=== PATIENT | female | born 1935 | race African-American/Black ===

== ENCOUNTER 2018-04-23 10:37 | Inpatient (IN) | payer MEDICARE, MEDICAID ==
--- NOTE | 2018-04-23 11:11 | ED Physician Chart ---
ED Chief Complaint/HPI - Patient Information Date Seen:: 04/23/18 Time Seen:: 11:00 Chief Complaint:: INSOMNIA DEPRESSION History of Present Illness:: 82 YR OLD FEMALE WITH HX OF PARANOID SCHIZOPHRENIA WITH TROUBLE SLEEPING GIVEN BY PSCHIATRIST TRAZADONE YEST FOR SLEEP TOOK ONE YEST PT DENIES SUICIDAL IDEATION NO HALLUCINATIONS PT SPEAKING TO DAUGHTER WHO LIVES WITH HER IN [place] Allergies:: Allergies Allergy/AdvReac Type Severity Reaction Status Date / Time No Known Allergies Allergy Verified 04/23/18 10:50 Vitals:: Vital Signs - 8 hr 04/23/18 10:50 Temp 98.0 F HR 61 RR 21 BP 136/37 O2 Sat % 97 ED Review of Systems - Review of Systems General/Constitutional: No fever Head: No headache, No light-headedness Eyes: No loss of vision, No pain, No diplopia ENT: No earache, No nasal drainage, No sore throat, No tinnitus Neck: No neck pain, No swelling, No thyromegaly, No stiffness, No mass noted Cardio Vascular: No chest pain, No palpitations, No PND, No orthopnea, No edema Pulmonary: No SOB, No cough, No sputum, No wheezing GI: No nausea, No vomiting, No diarrhea, No pain, No melena, No hematochezia, No constipation, No hematemesis G/U: No dysuria, No frequency, No hematuria Musculoskeletal: No bone or joint pain, No back pain, No muscle pain Endocrine: No polyuria, No polydipsia Psychiatric: Prior psych history, Depression, Anxiety, No suicidal ideation Hematopoietic: No bruising, No lymphadenopathy Allergic/Immuno: No urticaria, No angioedema Neurological: No syncope ED Past Medical History - Past Medical History Past Medical History: HTN, DM ED Physical Exam - Physical Examination General/Constitutional: Well-developed, well-nourished Head: Atraumatic Eyes: Lids, conjuctiva normal Skin: Nl inspection ENMT: External ears, nose nl Neck: Nontender Respiratory: Nl effort/Exclusion Cardio Vascular: RRR, No murmur, gallop, rubs GI: No tenderness/rebounding/guarding : No CVA tenderness, NL external genitalia Extremities: No tenderness or effusion Neuro/Psych: Alert/oriented Misc: Normal back ED Assessment - Assessment General Assessment: ANXDEPRESSION INSOMNIA PARANOID SCHIZOPHRENIA ED Septic Shock - . Is Septic Shock (SBP<90, OR Lactate>4 mmol\L) present?: No - <6hrs of presentation: Vital Signs: Vital Signs - 8 hr 04/23/18 10:50 Temp 98.0 F HR 61 RR 21 BP 136/37 O2 Sat % 97 ED Reassessment (Disposition) - Reassessment Reassessment Condition:: Improved - Patient Disposition Discharge/Transfer:: Acute Care w/in this hosp
[2018-04-23 11:21] LABS: % BASOPHILS 0.9 % (0.0-2.0); % EOSINOPHILS 2.4 % (0.0-5.0); % LYMPHOCYTES 28.8 % (20.0-50.0); % MONOCYTES 6.8 % (2.0-10.0); % NEUTROPHILS 61.1 % (40.0-80.0); EOSINOPHILE ABSOLUTE 0.1 Th/cmm (0.1-0.4); HEMATOCRIT 38.1 % (41.0-60); HEMOGLOBIN 12.8 gm/dL (12-16); LYMPHOCYTE ABSOLUTE 1.4 Th/cmm (1.5-3.0); MEAN CORPUSCULAR HEMOGLOBIN 30.6 pg (27.0-31.0); MEAN CORPUSCULAR HGB CONC 33.6 pg (28.0-36.0); MEAN PLATELET VOLUME 8.1 fl; MONOCYTE ABSOLUTE 0.3 Th/cmm (0.3-1.0); NEUTROPHILE ABSOLUTE 2.9 Th/cmm (1.8-8.0); PLATELET COUNT 211 Th/cmm (150-400); RED BLOOD COUNT 4.19 Mil/cmm (3.80-5.20); RED CELL DISTRIBUTION WIDTH 12.2 % (11.5-20.0); WHITE BLOOD COUNT 4.7 Th/cmm (4.8-10.8)
[2018-04-23 11:43] LABS: ACETAMINOPHEN < 10.0 ug/mL (10.0-30.0); ALB/GLOB RATIO 1.8 (1.0-1.8); ALBUMIN 4.1 gm/dL (3.7-5.3); ALKALINE PHOSPHATASE 56 U/L (34-104); ANION GAP 8.4 (7.0-16.0); BILIRUBIN,TOTAL 0.7 mg/dL (0.3-1.0); BUN - UREA NITROGEN 17 mg/dL (7-25); CALCIUM SERUM 9.7 mg/dL (8.6-10.3); CARBON DIOXIDE 26.5 mEq/L (21.0-31.0); CHLORIDE 107 mEq/L (98-107); CREATININE - SERUM 0.9 mg/dL (0.6-1.2); GLUCOSE 100 mg/dL (70-105); POTASSIUM SERUM 3.9 mEq/L (3.5-5.1); SGOT 20 U/L (13-39); SGPT/ALT 11 U/L (7-52); SODIUM SERUM 138 mEq/L (136-145); TOTAL PROTEIN,SERUM 6.4 gm/dL (6.0-8.3)
[2018-04-23 11:48] LABS: SALICYLATES (ASPIRIN) < 25.0 mg/L (30.0-100.0)
[2018-04-23 13:35] LABS: URINE MICROSCOPIC INDICATED? YES; URINE SOURCE CLEAN C
[2018-04-23 13:44] LABS: URINE BILIRUBIN NEGATIVE (NEGATIVE); URINE BLOOD NEGATIVE (NEGATIVE); URINE GLUCOSE (UA) NEGATIVE (NEGATIVE); URINE KETONE NEGATIVE (NEGATIVE); URINE LEUKOCYTE ESTERASE MODERATE (NEGATIVE); URINE NITRATE NEGATIVE (NEGATIVE); URINE PH 5.5 (4.6 - 8.0); URINE PROTEIN NEGATIVE (NEGATIVE); URINE UROBILINOGEN 0.2 E.U./dL (0.2 - 1.0)
[2018-04-23 13:46] LABS: URINE CLARITY TURBID (CLEAR); URINE COLOR YELLOW
[2018-04-23 13:49] LABS: URINE BACTERIA MODERATE /hpf (NONE SEEN); URINE EPITHELIAL CELLS MODERATE /lpf (FEW); URINE RBC 0-2 /hpf (0-5)
[2018-04-23 13:51] LABS: AMPHETAMINE URINE NEGATIVE (NEGATIVE); BARBITURATES URINE NEGATIVE (NEGATIVE); BENZODIAZEPINES QUAL URINE NEGATIVE (NEGATIVE); CANNABINOID THC NEGATIVE (NEGATIVE); COCAINE METABOLITE QUAL URINE NEGATIVE (NEGATIVE); METHADONE URINE NEGATIVE (NEGATIVE); METHAMPHETAMINES QUAL URINE NEGATIVE (NEGATIVE); OPIATES (MORPHINE) QUAL. URINE NEGATIVE (NEGATIVE); PHENCYCLIDINE (PCP) URINE NEGATIVE (NEGATIVE); TRICYCLICS (TCA) QUAL. URINE NEGATIVE (NEGATIVE)
[2018-04-23 22:40] VITALS: BP 155/83
[2018-04-23] MEDS ORDERED: Maalox 30 mL Cup PO PRN (22:43)
[2018-04-23] MEDS ORDERED: Magnesium Hydroxide (MOM) 30 mL UDC PO PRN (22:43)
--- NOTE | 2018-04-24 08:51 | Diagnostic Imaging Report ---
CT scan of the brain without intravenous contrast HISTORY: Psychosis, mental status change, stroke/CVA Total DLP equals 610 CTDI equals 37.1 Axial sections were obtained from the base of the skull to the vertex. There is prominence/enlargement of the ventricular system size. Associated enlargement of cerebral sulci and subarachnoid cisterns. Findings are consistent with changes of generalized cerebral atrophy. No acute parenchymal abnormalities. No acute cerebral hemorrhage. Hypodensity is seen within the supratentorial white matter regions without mass effect. The findings may be associated with chronic small vessel ischemic disease. No extra-axial masses or abnormal fluid collections. IMPRESSION: 1. No acute abnormalities 2. Cerebral atrophy 3. Supratentorial white matter changes that may reflect chronic small vessel ischemic disease
[2018-04-24] MEDS: Multivitamin Tab PO SCH (09:12)
--- NOTE | 2018-04-25 02:12 | Consultation ---
DATE OF CONSULTATION: 04/24/2018 Dr. Gibson covering for Dr. Castellanos. CHIEF COMPLAINT: Depression, ____, schizophrenia, not sleeping. HISTORY OF PRESENT ILLNESS: She is an 82-year-old female with a history of schizophrenia who is having trouble sleeping, given by psychiatrist marko, medically cleared and transferred to [facility] for continuation of severe insomnia. Today, on jwry-sv-savm evaluation, the patient reports severe insomnia, very distraught with insomnia, overwhelmed. Denies any auditory or visual hallucinations. No manic or hypomanic symptoms. ALLERGIES TO MEDICATIONS: NKDA CURRENT MEDICAL PROBLEMS: Include hypertension and diabetes. MEDICAL HISTORY: None. FAMILY PSYCHIATRIC HISTORY: None. PSYCHOSOCIAL MENTAL HISTORY: The patient reports that she lives with a caregiver. CURRENT MEDICATIONS: She is on multivitamins, Ambien as needed, magnesium oxide, and acetaminophen. MENTAL STATUS EXAMINATION: She is in room, calm, engaging, at times sad, tearful, awake and alert x 3. Denies any auditory or visual hallucinations or homicidal. No delusions. PHYSICAL PAIN: 0/10. PHYSICAL IMPAIRMENT: None. ACUTE FUNCTIONAL IMPAIRMENT: Severe. STRENGTH: Good ability for insight in the near future. WEAKNESSES: Poor coping skills. PRIMARY DIAGNOSIS: Unspecified mood disorder. SECONDARY DIAGNOSIS: Schizophrenia by history. MEDICAL DIAGNOSIS: As noted above. ASSESSMENT AND PLAN: The patient is an 82-year-old female who was admitted here for severe insomnia. Distraught by the insomnia. We will start the patient on Remeron 7.5 mg at nighttime, to continue adjusting. Will be obtaining more collateral baseline information. Discontinue the Ambien to reduce the risk of any ____ adverse effects. Estimated stay between 5-10. Discharge criteria demonstrate euthymic mood. No suicidal or homicidal ideation. Good psychiatric followup. Good svhr-zy-mbtu interaction. JOB# [id number]
--- NOTE | 2018-04-25 08:13 | History & Physical ---
ADMIT DATE: 04/23/2018 CHIEF COMPLAINT: Mental health disorder. HISTORY OF PRESENT ILLNESS: This is an 82-year-old female brought to Emergency Room by daughter for evaluation of mental health illnesses. The patient, as already mentioned, was medically cleared and was admitted to Geropsych unit for underlying mental health evaluations. PAST MEDICAL HISTORY: Hypertension, diabetes, hyperlipidemia, mental disorder. PAST SURGICAL HISTORY: No significant past surgical history. SOCIAL HISTORY: Lives in ____. MEDICATIONS: Tylenol, lisinopril, lorazepam, milk of mag, Remeron, multivitamins, and Ambien. REVIEW OF SYSTEMS: The patient denies any fever, no chills, no nausea, no abdominal pain, no headache, no chest pain, no dizziness, palpitations, dysuria, or hematuria. PHYSICAL EXAMINATION: VITAL SIGNS: Temperature 99.0, pulse 70, respirations 20, blood pressure 189/77, and 96% on room air. GENERAL APPEARANCE: This patient does not seem in acute distress. HEART: Normal. LUNGS: Clear to auscultation. ABDOMEN: Soft. NEUROLOGIC: The patient is awake, alert. Moves all extremities. No focal deficits. EXTREMITIES: No edema. AVAILABLE LABORATORY DATA: ____. ASSESSMENT: 1. Hypertension. 2. Hyperlipidemia. 3. Iron deficiency. 4. Diabetes. 5. Mental disorder. PLAN: The patient is admitted to [facility] unit ____ psychiatrist. Lisinopril started. Monitor vital signs closely. The patient's diabetes is diet controlled. The patient's home medication reconciled. Discussed with her regarding condition and plan of care with nursing staff. JOB# [id number]
[2018-04-25] MEDS: Multivitamin Tab PO SCH (09:04)
--- NOTE | 2018-04-25 22:10 | Progress Notes ---
DATE: 04/25/2018 SUBJECTIVE: The patient was seen and evaluated. The patient's chart was reviewed. Dr. Gibson covering for Dr. Castellanos. Recent MRI was performed, impression; no acute abnormalities with cerebral atrophy and supratentorial white matter changes, however, chronic small vessel ischemic changes. Nursing staff reported the patient presents a little more irritable, paranoid, believing there was a code blue, that her daughter was engaged in it. Today on odat-aj-clom evaluation, the patient presents very irritable. She reports that she wants a bee raiser present, people are trying to kill her, that she wants her daughter present in order to communicate and requesting only Dr. Castellanos to see her because she is very afraid something is going to happen to her. MENTAL STATUS EXAMINATION: Easily paranoid, suspicious. ASSESSMENT AND PLAN: The patient is an 82-year-old female with symptoms observed to be more consistent with paranoia. We will continue monitoring and evaluating and augment with Seroquel to target the patient's paranoia while we continue exploring any other medical avenues of her recent altered mental status. JOB# [id number]
[2018-04-26] MEDS: Multivitamin Tab PO SCH (08:37)
--- NOTE | 2018-04-26 21:04 | General Progress Note ---
Subjective - Review of Systems Service Date: 04/26/18 Subjective: Patient doing fine denied any complaints Objective - Results Result Diagrams: 04/23/18 11:10 04/23/18 11:10 Recent Labs: Laboratory Last Values WBC 4.7 Th/cmm (4.8-10.8) L 04/23/18 11:10 RBC 4.19 Mil/cmm (3.80-5.20) 04/23/18 11:10 Hgb 12.8 gm/dL (12-16) 04/23/18 11:10 Hct 38.1 % (41.0-60) L 04/23/18 11:10 MCV 91.0 fl (81-100) 04/23/18 11:10 MCH 30.6 pg (27.0-31.0) 04/23/18 11:10 MCHC Differential 33.6 pg (28.0-36.0) 04/23/18 11:10 RDW 12.2 % (11.5-20.0) 04/23/18 11:10 Plt Count 211 Th/cmm (150-400) 04/23/18 11:10 MPV 8.1 fl 04/23/18 11:10 Neutrophils % 61.1 % (40.0-80.0) 04/23/18 11:10 Lymphocytes % 28.8 % (20.0-50.0) 04/23/18 11:10 Monocytes % 6.8 % (2.0-10.0) 04/23/18 11:10 Eosinophils % 2.4 % (0.0-5.0) 04/23/18 11:10 Basophils % 0.9 % (0.0-2.0) 04/23/18 11:10 Sodium 138 mEq/L (136-145) 04/23/18 11:10 Potassium 3.9 mEq/L (3.5-5.1) 04/23/18 11:10 Chloride 107 mEq/L (98-107) 04/23/18 11:10 Carbon Dioxide 26.5 mEq/L (21.0-31.0) 04/23/18 11:10 Anion Gap 8.4 (7.0-16.0) 04/23/18 11:10 BUN 17 mg/dL (7-25) 04/23/18 11:10 Creatinine 0.9 mg/dL (0.6-1.2) 04/23/18 11:10 Est GFR ( Amer) TNP 04/23/18 11:10 Est GFR (Non-Af Amer) TNP 04/23/18 11:10 BUN/Creatinine Ratio 18.9 04/23/18 11:10 Glucose 100 mg/dL (70-105) 04/23/18 11:10 Calcium 9.7 mg/dL (8.6-10.3) 04/23/18 11:10 Total Bilirubin 0.7 mg/dL (0.3-1.0) 04/23/18 11:10 AST 20 U/L (13-39) 04/23/18 11:10 ALT 11 U/L (7-52) 04/23/18 11:10 Alkaline Phosphatase 56 U/L (34-104) 04/23/18 11:10 Total Protein 6.4 gm/dL (6.0-8.3) 04/23/18 11:10 Albumin 4.1 gm/dL (3.7-5.3) 04/23/18 11:10 Globulin 2.3 gm/dL 04/23/18 11:10 Albumin/Globulin Ratio 1.8 (1.0-1.8) 04/23/18 11:10 Urine Source CLEAN C 04/23/18 13:29 Urine Color YELLOW 04/23/18 13:29 Urine Clarity TURBID (CLEAR) H 04/23/18 13:29 Urine pH 5.5 (4.6 - 8.0) 04/23/18 13:29 Ur Specific [place] 1.025 (1.005-1.030) 04/23/18 13:29 Urine Protein NEGATIVE mg/dL (NEGATIVE) 04/23/18 13:29 Urine Glucose (UA) NEGATIVE mg/dL (NEGATIVE) 04/23/18 13:29 Urine Ketones NEGATIVE mg/dL (NEGATIVE) 04/23/18 13:29 Urine Blood NEGATIVE (NEGATIVE) 04/23/18 13:29 Urine Nitrate NEGATIVE (NEGATIVE) 04/23/18 13:29 Urine Bilirubin NEGATIVE (NEGATIVE) 04/23/18 13:29 Urine Urobilinogen 0.2 E.U./dL (0.2 - 1.0) 04/23/18 13:29 Ur Leukocyte Esterase MODERATE (NEGATIVE) H 04/23/18 13:29 Urine RBC 0-2 /hpf (0-5) 04/23/18 13:29 Urine WBC 6-10 /hpf (0-5) H 04/23/18 13:29 Ur Epithelial Cells MODERATE /lpf (FEW) 04/23/18 13:29 Urine Bacteria MODERATE /hpf (NONE SEEN) H 04/23/18 13:29 Salicylates < 25.0 mg/L (30.0-100.0) L 04/23/18 11:10 Urine Opiates Screen NEGATIVE (NEGATIVE) 04/23/18 13:29 Urine Methadone Screen NEGATIVE (NEGATIVE) 04/23/18 13:29 Acetaminophen < 10.0 ug/mL (10.0-30.0) L 04/23/18 11:10 Ur Barbiturates Screen NEGATIVE (NEGATIVE) 04/23/18 13:29 Ur Tricyclics Screen NEGATIVE (NEGATIVE) 04/23/18 13:29 Ur Phencyclidine Scrn NEGATIVE (NEGATIVE) 04/23/18 13:29 Amphetamines Screen NEGATIVE (NEGATIVE) 04/23/18 13:29 U Methamphetamines Scrn NEGATIVE (NEGATIVE) 04/23/18 13:29 U Benzodiazepines Scrn NEGATIVE (NEGATIVE) 04/23/18 13:29 U Cocaine Metab Screen NEGATIVE (NEGATIVE) 04/23/18 13:29 U Cannabinoids Screen NEGATIVE (NEGATIVE) 04/23/18 13:29 - Physical Exam Vitals and I&O: Vital Signs Temp 98.1 F 04/26/18 14:00 Pulse 84 04/26/18 14:00 Resp 18 04/26/18 14:00 BP 131/68 04/26/18 14:00 Pulse Ox 95 04/26/18 14:00 Intake & Output 04/26/18 04/26/18 04/27/18 06:59 18:59 06:59 Intake Total 480 1200 240 Balance 480 1200 240 Intake: Oral 480 1200 240 Other: # Voids 2 3 2 # Bowel Movements 0 Active Medications: Current Medications Acetaminophen (Tylenol) 650 mg PO Q4HR PRN PRN Reason: Mild Pain / Temp above 100 Stop: 06/22/18 22:42 Al Hydrox/Mg Hydrox/Simethicone (Maalox) 30 ml PO Q4HR PRN PRN Reason: GI DISTRESS Stop: 06/22/18 22:42 Lisinopril (Zestril) 10 mg PO DAILY OBIE Stop: 06/23/18 08:59 Last Admin: 04/26/18 08:38 Dose: 10 mg Lorazepam (Ativan) 0.5 mg PO Q4HR PRN; Protocol PRN Reason: Anxiety Stop: 05/23/18 22:42 Last Admin: 04/25/18 16:04 Dose: 0.5 mg Magnesium Hydroxide (Milk Of Magnesia) 30 ml PO HS PRN PRN Reason: Constipation Mirtazapine (Remeron) 7.5 mg PO HS OBIE PRN Reason: Protocol Stop: 06/23/18 20:59 Last Admin: 04/26/18 20:24 Dose: 7.5 mg Multivitamins/Vitamin C (Theragran) 1 tab PO DAILY OBIE Stop: 06/23/18 08:59 Last Admin: 04/26/18 08:37 Dose: 1 tab Quetiapine Fumarate (Seroquel) 12.5 mg PO DAILY OBIE PRN Reason: Protocol Stop: 06/25/18 08:59 Last Admin: 04/26/18 08:37 Dose: 12.5 mg Zolpidem Tartrate (Ambien) 5 mg PO HS PRN PRN Reason: Insomnia Stop: 06/22/18 22:42 Last Admin: 04/26/18 20:25 Dose: 5 mg Cardiovascular: Regular rate Lungs: Clear to auscultation - Procedures Procedures: Procedures Procedure Code Date GROUP PSYCHOTHERAPY 74962 05/30/03 OTHER GROUP THERAPY 94.44 03/28/07 Assessment/Plan - Problem List Patient Problems: All Active Problems INSOMNIA WITH UNSTEADY GAIT (Acute) - Assessment Assessment: DM II HTN HYPERLIPIDEMIA PSYCH DISORDER - Plan Plan: Patient underlying medical issue seems stable Continue current meds Psych treatment per Psychiatrist
--- NOTE | 2018-04-27 02:09 | Progress Notes ---
DATE: 04/26/2018 SUBJECTIVE: The patient with history of depression, schizophrenia, having trouble sleeping, not amenable to interview. Every question I asked her, she states "Ask Dr. Castellanos." Dr. Gibson seeing the patient over the past couple of days, noted to be irritable, paranoid, withdrawn, mostly in room, suspicious. Staff noting she is hyperverbal, needing frequent redirection. She was coherent, sometimes confused, other times more oriented. ASSESSMENT: The patient remains labile, confused, paranoid, intermittently cooperative, refusing interview this morning. PLAN: Continue to monitor. Medications were reviewed including dosages and frequencies, currently on Seroquel. We will monitor and follow up. Medications were noted. JOB# [id number]
[2018-04-27] MEDS: Multivitamin Tab PO SCH (08:44)
[2018-04-28] MEDS: Multivitamin Tab PO SCH (09:54)
--- NOTE | 2018-04-28 17:29 | Progress Notes ---
DATE: 04/27/2018 SUBJECTIVE: Chart reviewed and the patient interviewed. Also discussed the patient's condition with the staff and reviewed records and labs. The patient continued to be hyperverbal and she is still severely anxious, irritable and depressed. The patient also has difficulty with her mood and she is still unable to provide any safe plan for her self-care. The patient also is disheveled and personal hygiene is still poor. Otherwise, the patient continued to comply with taking Seroquel. The patient denies any side effects of Seroquel. She is still paranoid and anxious and slightly confused. ASSESSMENT: The patient is still psychotic and considered to be gravely disabled. TREATMENT PLAN: We will continue Seroquel and continue Remeron. Also, continue to work on her ineffective coping. Also, working with sample case porter in regard to discharge plans and placement issue. JOB# [id number]
[2018-04-29] MEDS: Multivitamin Tab PO SCH (09:46)
[2018-04-29] MEDS ORDERED: Haloperidol Lactate 5 mg/mL 1mL Vial IM ONE (11:25)
[2018-04-29] MEDS ORDERED: Haloperidol Lactate 5 mg/mL 1mL Vial ONE (11:25)
--- NOTE | 2018-04-29 12:28 | Progress Notes ---
DATE: 04/29/[address] Castellanos. Case was discussed with staff of the patient, reviewed records. This is an 82-year-old female who was admitted on the 04/23/2018 with a history of schizophrenia, was unable to sleep, unable to participate in a meaningful conversation, became very aggressive when I am tried to talk to her. She has been irritable, paranoid, easily agitated, had to be medicated after I talked to her with Haldol 1 mg, Ativan 0.5 mg. The patient is unpredictable, impulsive, needing redirection. She is on Remeron 50 mg at bedtime and Seroquel 50 mg daily. The patient is unpredictable, impulsive, needing redirection, very poor insight and we will continue to work with the patient in group therapy, milieu therapy, and adjust the medications as needed. JOB# [id number]
--- NOTE | 2018-04-30 00:27 | Progress Notes ---
DATE: 04/28/2018 SUBJECTIVE: Chart reviewed and the patient interviewed. Also discussed the patient's condition with the staff and reviewed records and labs, this is for yesterday, 04/28/2018. The patient continued to be in irritable and angry mood. The patient did not sleep almost all night last night. She also continued to be in angry and irritable mood and seems to be manicky and irritable. The patient also during my interview was holding my hand all the time and was difficult to let go and trying to address me, rambling about her daughter, saying that her daughter has been angry, but the patient could not explain to me exactly what is happening with her daughter. The patient is hyperverbal and having disorganized thoughts with circumstantial and tangential with flight of ideas. She also is disheveled and personal hygiene is poor. I spoke with the patient's daughter who is basically upset with the situation with placement issue and who is being evicted from the home where they used to live. ASSESSMENT: The patient is still manicky and psychotic. TREATMENT PLAN: We will continue to monitor her behavior and her condition closely. Also, we will increase Seroquel to 50 mg in the morning and 100 mg at bedtime as well as we will increase Remeron to 15 mg at bedtime and we will continue to follow up closely. JOB# [id number]
[2018-04-30] MEDS ORDERED: Haloperidol Lactate 5 mg/mL 1mL Vial ONE (08:57)
[2018-04-30] MEDS: Haloperidol Lactate 5 mg/mL 1mL Vial IM ONE ×2 (09:10→09:48)
[2018-04-30] MEDS: Multivitamin Tab PO SCH (09:45)
--- NOTE | 2018-04-30 19:24 | Progress Notes ---
DATE: 04/30/2018 SUBJECTIVE: The patient is currently in the hospital, history of schizophrenia, depression. The patient fixated on speaking with Dr. Castellanos only, states "I have a lot of things to say to Dr. Castellanos," not answering any of my questions. When I asked her where she is going to go when I leave her, she states "that is up to me and Dr. Castellanos." The patient still noted to be impulsive, unpredictable, aggressive at times, seems psychotic. Medications were noted including doses and frequencies. Staff noting she remains at times, disoriented, labile, argumentative, requiring frequent redirection and prompting. ASSESSMENT: The patient remains agitated, bizarre, paranoid. PLAN: We will continue to monitor. We will continue to titrate and adjust medications. Medications were reviewed, Arnoldo for example. JOB# [id number]
--- NOTE | 2018-05-01 09:32 | Progress Notes ---
DATE: 05/01/2018 SUBJECTIVE: The patient in the hospital, history of schizophrenia, only want to speak with Dr. Castellanos, not answering any of my questions, just referencing wanting to speak with Dr. Castellanos " that is between me and Dr. Castellanos." Remains impulsive, unpredictable, mostly in her room. I spoke seemingly suspicious, still with periods of irritability, rambling sometimes about family, angry with daughter for example. ASSESSMENT: The patient remains paranoid, not safe for a lower level of care. Medications were noted. We will continue to monitor. The patient has required emergency medications while she is in the hospital. I will be increasing her nighttime dosing of Seroquel to 125 mg as an increase. We will monitor and follow up. JOB# [id number]
[2018-05-01] MEDS: Multivitamin Tab PO SCH (12:15)
[2018-05-02] MEDS: Multivitamin Tab PO SCH (08:22)
[2018-05-03] MEDS: Multivitamin Tab PO SCH (09:02)
--- NOTE | 2018-05-03 19:22 | Progress Notes ---
DATE: 05/02/2018 SUBJECTIVE: Chart reviewed and the patient interviewed. Also, discussed the patient's condition with the staff and reviewed records and labs. The patient continued to be in angry and in irritable mood. The patient also is still manic and he still has severe mood swings. Also, her speech is pressured. The patient also is still suspicious and paranoid. The patient also is still fighting with the staff and with peers for no reason. The patient also is demanding and she is still in angry mood most of the time. I met with the patient's daughter who has some concern about her mother's treatment plan and about after discharge plans. Basically, the patient has been homeless and there is no place to live at this time and discussed with the patient's daughter further treatment options and after discharge plans. ASSESSMENT: The patient is still manicky and psychotic. TREATMENT PLAN: We will continue to monitor her behavior and her condition closely. Also, continue to work on her ineffective coping and her manic behavior as well as poor impulse control. Also, we will work on discharge plans and placement issue with the patient's daughter. JOB# [id number]
--- NOTE | 2018-05-04 04:34 | Progress Notes ---
DATE: 05/03/2018 PSYCHIATRIC PROGRESS NOTE SUBJECTIVE: Chart reviewed and the patient interviewed. Also discussed the patient's condition with the staff and reviewed records and labs. Also, I met with the patient's daughter yesterday and discussed with her further treatment plans. The patient is still extremely agitated and extremely irritable. The patient also had difficulty sleeping all night and she is awake since fur finisher tailor. The patient also is still rambling and she still has problems with her mood. She also is still feeling angry with her daughter and she is still paranoid about her daughter saying "She has my checkbook and she is controlling me." The patient also continues to get easily agitated with the staff and she is impulsive and suspicious about everything that happens. Otherwise, the patient is compliant with taking her medications with no side effects of medications. ASSESSMENT: The patient is still suspicious and is still paranoid and in angry mood and easily agitated. TREATMENT PLAN: We will continue monitoring her behavior and her condition closely. Also, we will increase Remeron to 22.5 mg at bedtime and we will increase Seroquel to 50 mg twice a day and 200 mg at bedtime. Also, continue to work with the patient's daughter as well as hospice case manager in regard to discharge plans and placement issue. The patient seems to be also having some weakness and we will work on her placement issue and on discharge plans. JOB# [id number]
[2018-05-04] MEDS: Multivitamin Tab PO SCH (08:40)
[2018-05-05] MEDS: Multivitamin Tab PO SCH (08:29)
--- NOTE | 2018-05-05 11:55 | Discharge Summary ---
DATE OF DISCHARGE: 05/05/2018 PATIENT'S AGE: 82-year-old. SEX: Female. PHYSICIAN: Liudmila Castellanos MD, MPH FINAL DIAGNOSES: PRIMARY DIAGNOSIS: Schizoaffective disorder, bipolar type, with psychotic features. MEDICAL DIAGNOSES: Hypertension. Hyperlipidemia. Iron deficiency. Diabetes. REASON FOR HOSPITALIZATION: The patient was admitted to the hospital because of increased irritability and agitation and confusion. The patient also was not able to sleep for several days prior to her admission. HOSPITAL COURSE: The patient continued to be increasingly irritable and agitated. The patient also was irritable and angry mood. The patient also was paranoid, especially when talking about her daughter. She also was having difficulty with her sleep at night. The patient also was not able to verbalize any safe plan for self-care in the beginning of her admission. The patient's affect was brighter. The patient was less irritable and less agitated. The patient was discharged from the hospital with her daughter as per request of her daughter as well as the patient. I met with the patient's daughter and she was little bit confused in regards to what she wanted to do but the final thing that the patient wanted to go with her daughter and the same thing daughter wants her mother to come with her. Suggested placement but was not clear if the patient can go to a facility and continue to work with the patient and her daughter in regard to possible placement temporarily in SNF Facility. PHYSICAL EXAM: Of the patient showed the patient as mentioned under medical diagnosis and the patient was showing iron deficiency and weakness and needed some rehabilitation. AFTER DISCHARGE PLANS: The patient will be followed up as an outpatient. EXPECTED OUTCOME AFTER DISCHARGE: Fair if the patient continues to take her psychotropic medications and follow up with outpatient treatment plans. [facility]# [id number]
[2018-05-05] MEDS ORDERED: Haloperidol Lactate 5 mg/mL 1mL Vial ONE (15:57)
[2018-05-05] MEDS ORDERED: Haloperidol Lactate 5 mg/mL 1mL Vial IM ONE (16:09)
--- NOTE | 2018-05-06 00:48 | Progress Notes ---
DATE: 05/04/2018 PSYCHIATRIC PROGRESS NOTE Chart reviewed and the patient interviewed. Also discussed the patient's condition with the staff and reviewed records and labs. The patient still has labile affect and she is still easily irritable and easily agitated. The patient also is still paranoid and seems to be slightly confused, especially when talking about her daughter. The patient also still has mood swings and she still has difficulty understanding the reasons why she is in the hospital. Also, during interview, the patient is very anxious and excited to the point that her thought processes are circumstantial and tangential with occasional flight of ideas and still have disorganized thoughts. The patient did refuse to take her medication last night for no apparent reason, but she did take it during the day according to staff. ASSESSMENT: The patient is still manic and psychotic. TREATMENT PLAN: The patient's daughter is confused also in regard to placement issue and she is also confusing myself telling me she does not want her mother with her because they have no place to live, except she has been living with a friend temporarily and then she is telling me that administrator social welfare that she wanted to take her mother with her. We will continue to work on what would be the discharge plans for the patient. At the same time, we will continue to monitor her behavior and will continue current psychotropic medications and follow up with her behavior and discharge plans. JOB# [id number]
== END 2018-05-05 17:20 | DRG 885 ==
LOC: ER 10:37 → GERO2 17:43
PROVIDERS: ADMIT Psychiatry & Neurology Psychiatry; ATTEND Psychiatry & Neurology Psychiatry
DX: F25.0 Schizoaffective disorder, bipolar type (principal); F39 Unspecified mood [affective] disorder; I10 Essential (primary) hypertension; E11.9 Type 2 diabetes mellitus without complications; E78.5 Hyperlipidemia, unspecified; F41.8 Other specified anxiety disorders; G47.00 Insomnia, unspecified; F29 Unspecified psychosis not due to a substance or known physiological condition; E61.1 Iron deficiency; R45.87 Impulsiveness; Z53.29 Procedure and treatment not carried out because of patient's decision for other reasons; Z79.899 Other long term (current) drug therapy
CPT/HCPCS: 36415-UA; 70450-TC; 80053-TC; 80307; 80329-TC; 81001-TC; 82948-90; 85025-TC; 87086-90; J1200; J1630; J2060; Z7610

== ENCOUNTER 2018-05-25 20:37 | Inpatient (IN) | payer MEDICARE, MEDICAID ==
--- NOTE | 2018-05-25 20:54 | ED Physician Chart ---
ED Chief Complaint/HPI - Patient Information Date Seen:: 05/25/18 Time Seen:: 20:30 Chief Complaint:: Agitation History of Present Illness:: onset x 2 days of agitation and aggressive behavior; no report of trauma, SIs, H /As, S/T, neck pain, C/P, SOB, Abd. Pain, A/N/V/D/C, fever, chills, or urinary s /s Allergies:: Allergies Allergy/AdvReac Type Severity Reaction Status Date / Time No Known Allergies Allergy Verified 04/23/18 10:50 Historian:: Patient, EMS Review:: Nurse's Note Reviewed, Old Chart Reviewed, EMS run form Reviewed ED Review of Systems - Review of Systems General/Constitutional: No fever, No chills, No weight loss, No weakness, No diaphoresis, No edema, No loss of appetite Skin: No skin lesions, No rash, No bruising Head: No headache, No light-headedness Eyes: No loss of vision, No pain, No diplopia ENT: No earache, No nasal drainage, No sore throat, No tinnitus Neck: No neck pain, No swelling, No thyromegaly, No stiffness, No mass noted Cardio Vascular: No chest pain, No palpitations, No PND, No orthopnea, No edema Pulmonary: No SOB, No cough, No sputum, No wheezing GI: No nausea, No vomiting, No diarrhea, No pain, No melena, No hematochezia, No constipation, No hematemesis G/U: No dysuria, No frequency, No hematuria, No nacturia Housekeeper Cleaning Cooking: No vaginal discharge, No abnormal vaginal bleed, No contraction Musculoskeletal: No bone or joint pain, No back pain, No muscle pain Endocrine: No polyuria, No polydipsia Psychiatric: Prior psych history, Depression, Anxiety, No suicidal ideation, No homicidal ideation, Auditory hallucination, No visual hallucination Hematopoietic: No bruising, No lymphadenopathy Allergic/Immuno: No urticaria, No angioedema Neurological: No syncope, No focal symptoms, No weakness, No paresthesia, No headache, No seizure, No dizziness, No confusion, No vertigo ED Past Medical History - Past Medical History Obtainable: Yes Past Medical History: HTN Family History: HTN Social History: Non Smoker, No Alcohol, No Drug Use, Single, Care Facility Surgical History: None Psychiatricy History: Depression, Schizophrenia, Bipolar Medication: Reviewed Family Medical History - Family Member Mother History Unknown: Yes ED Physical Exam - Physical Examination General/Constitutional: Awake, Well-developed, well-nourished, Alert, No distress, GCS 15, Non-toxic appearing, Ambulatory Head: Atraumatic Eyes: Lids, conjuctiva normal, PERRL, EOMI Skin: Nl inspection, No rash, No skin lesions, No ecchymosis, Well hydrated, No lymphadenopathy ENMT: External ears, nose nl, TM canals nl, Nasal exam nl, Lips, teeth, gums nl , Oropharynx nl, Tonsils nl Neck: Nontender, Full ROM w/o pain, No JVD, No nuchal rigidity, No bruit, No mass, No stridor Respiratory: Nl effort/Exclusion, Clear to Auscultation, No Wheeze/Rhonchi/Rales Cardio Vascular: RRR, No murmur, gallop, rubs, NL S1 S2, Carotid/Femoral/Distal pulses equal bilaterally GI: No tenderness/rebounding/guarding, No organomegaly, No hernia, Normal BS's, Nondistended, No mass/bruits, No McBurney tenderness : No CVA tenderness Extremities: No tenderness or effusion, Full ROM, normal strength in all extremities, No edema, Normal digits & nails Neuro/Psych: Alert/oriented, DTR's symmetric, Normal sensory exam, Normal motor strength, Judgement/insight normal, Mood normal, Normal gait, No focal deficits Other Neuro/Psych comments:: + Psychomotor Agitation; no SIs; Mood/Affect: Stable Misc: Normal back, No paraspinal tenderness ED Labs/Radiology/EKG Results - Lab Results Comments:: unremarkable - EKG Interpretations EKG Time:: 21:35 Rate & Rhythm: 68; NSR Comments:: non-specific st-t changes ED Septic Shock - . Is Septic Shock (SBP<90, OR Lactate>4 mmol\L) present?: No ED Reassessment (Disposition) - Reassessment Reassessment Condition:: Improved - Diagnosis Diagnosis:: Agitation; Psychosis; Medical Clearance; Schizophrenia; - Aftercare/Follow up Instructions Aftercare/Follow-Up Instructions:: Counseled pt regarding lab results/diagnosis & need follow up, Counseled pt & family regarding lab results/diagnosis & need follow up - Patient Disposition Discharge/Transfer:: Acute Care w/in this hosp Admitted to:: [facility] Condition at Disposition:: Stable, Improved ED Discharge Plan - Patient Disposition Admit/Discharge/Transfer: Other Care w/in this hosp
[2018-05-25 21:24] LABS: % BASOPHILS 0.8 % (0.0-2.0); % EOSINOPHILS 2.3 % (0.0-5.0); % LYMPHOCYTES 22.4 % (20.0-50.0); % MONOCYTES 5.8 % (2.0-10.0); % NEUTROPHILS 68.7 % (40.0-80.0); EOSINOPHILE ABSOLUTE 0.1 Th/cmm (0.1-0.4); HEMATOCRIT 34.2 % (41.0-60); HEMOGLOBIN 11.6 gm/dL (12-16); LYMPHOCYTE ABSOLUTE 1.1 Th/cmm (1.5-3.0); MEAN CELL VOLUME 89.3 fl (81-100); MEAN CORPUSCULAR HEMOGLOBIN 30.3 pg (27.0-31.0); MEAN PLATELET VOLUME 8.1 fl; MONOCYTE ABSOLUTE 0.3 Th/cmm (0.3-1.0); NEUTROPHILE ABSOLUTE 3.5 Th/cmm (1.8-8.0); PLATELET COUNT 216 Th/cmm (150-400); RED BLOOD COUNT 3.83 Mil/cmm (3.80-5.20); RED CELL DISTRIBUTION WIDTH 12.5 % (11.5-20.0)
[2018-05-25 22:02] LABS: ALB/GLOB RATIO 1.9 (1.0-1.8); ALKALINE PHOSPHATASE 70 U/L (34-104); ANION GAP 9.7 (7.0-16.0); BILIRUBIN,TOTAL 0.3 mg/dL (0.3-1.0); BUN - UREA NITROGEN 29 mg/dL (7-25); CALCIUM SERUM 9.7 mg/dL (8.6-10.3); CHLORIDE 111 mEq/L (98-107); CHOLESTEROL 180 mg/dL (<200); GLUCOSE 134 mg/dL (70-105); HDL -HIGH DENSITY LIPOPROTEIN 61 mg/dL (23-92); POTASSIUM SERUM 3.7 mEq/L (3.5-5.1); SGOT 34 U/L (13-39); SGPT/ALT 23 U/L (7-52); SODIUM SERUM 141 mEq/L (136-145); TOTAL PROTEIN,SERUM 6.1 gm/dL (6.0-8.3); TRIGLYCERIDES 58 mg/dL (<150)
[2018-05-25 22:04] LABS: ACETAMINOPHEN < 10.0 ug/mL (10.0-30.0); SALICYLATES (ASPIRIN) < 25.0 mg/L (30.0-100.0)
[2018-05-25 22:20] LABS: A1C % 5.6 % (4.0-6.0)
[2018-05-25] MEDS ORDERED: Magnesium Hydroxide (MOM) 30 mL UDC PO PRN ×2 (22:58→23:16)
[2018-05-25] MEDS ORDERED: Maalox 30 mL Cup PO PRN (23:16)
[2018-05-25 23:24] VITALS: BP 130/61
[2018-05-26] MEDS: Multivitamin Tab PO SCH (09:57)
[2018-05-26] MEDS ORDERED: Haloperidol Lactate 5 mg/mL 1mL Vial ONE (10:26)
[2018-05-26] MEDS ORDERED: Haloperidol Lactate 5 mg/mL 1mL Vial IM STA (10:47)
--- NOTE | 2018-05-27 01:49 | History & Physical ---
ADMIT DATE: 05/26/2018 REASON FOR ADMISSION: Psychiatric disorder. HISTORY OF PRESENT ILLNESS: This is an 82-year-old female with underlying diabetes, hypertension, hyperlipidemia, mental disorders, admitted to [facility] for underlying psychiatric illness by Dr. Castellanos who requested medical H and P on this patient. PAST MEDICAL HISTORY: DM II HTN Hyperlipidemia FAMILY HISTORY: Noncontributory. SOCIAL HISTORY: The patient was recently living in a nursing facility. No report alcohol, tobacco, or street drug use. CURRENT MEDICATIONS: Per medical reconciliation. ALLERGIES: No known allergies. REVIEW OF SYSTEMS: Difficult to obtain due to the patient's underlying severe confusions. PHYSICAL EXAMINATION: VITAL SIGNS: Temperature 98.1, pulse 60, respirations 20, blood pressure 149/79. HEART: S1, S2 normal. LUNGS: Clear to auscultation. ABDOMEN: Soft. EXTREMITIES: No edema noted. LABORATORY DATA: Available lab data has been reviewed. ASSESSMENT: 1. Diabetes. 2. Hypertension. 3. Hyperlipidemia. 4. Dementia. 5. Psychiatric disorder. PLAN: Psych evaluation and management per psychiatrist. Continue current blood pressure medication. Monitor vital signs. Continue diabetic meds. Patient condition and Plan of care Discussed with patient's nurse. Patient is medically stable. Thank you Dr Castellanos for allowing me to participate in care of this patient. JOB# [id number] MTDAlisha
--- NOTE | 2018-05-27 02:25 | Psychosocial Evaluation ---
DATE OF SERVICE: 05/26/2018 AGE: 82. SEX: Female. PHYSICIAN: Dr. Castellanos. CHIEF COMPLAINT: Agitation and manic behavior, not much at present time. HISTORY OF PRESENT ILLNESS: The patient is an 82-year-old female who has been under my care for treatment of bipolar disorder. The patient has been extremely agitated and irritable. The patient also has been anxious, and has been suspicious and paranoid. I was called to [facility] to evaluate the patient. The patient was extremely manicky, and she was wiping the floor and the patient was dancing and she kept hitting me on my shoulder and wants to dance with me, and was unable to follow any directions. The patient also was in irritable mood and she was severely restless. PAST PSYCHIATRIC HISTORY: The patient has history of multiple psychiatric hospitalizations for treatment of bipolar disorder. PAST MEDICAL HISTORY: Noncontributory. SOCIAL HISTORY: The patient currently is homeless. She has two daughters. She denies any alcohol or any history of drug use. ALLERGIES: No known allergies. MENTAL STATUS EXAMINATION: The patient appears her stated age. Irritable mood. Angry. Disorganized thoughts. The patient denied any hallucination, but severely paranoid and suspicious. The patient denies any suicide or homicide. The patient is alert and oriented to time, place, person, and situation. Intact immediate, recent and remote memories. Poor insight and poor judgment. ASSESSMENT: PRIMARY DIAGNOSIS: Bipolar disorder, severe, manic episode, with psychotic features. TREATMENT PLAN: We will monitor the patient's behavior closely. We will start the patient on lithium. Also, we will adjust psychotropic medications. ESTIMATED LENGTH OF STAY: 5-7 days. THE PATIENT'S STRENGTHS AND WEAKNESSES: The patient's general fund of knowledge is fair. Weakness is her manic behavior and poor impulse control. AFTER DISCHARGE PLAN: The patient will need placement and outpatient treatment and followup, will continue as an outpatient. CRITERIA FOR DISCHARGE: The patient not manic or psychotic, and will stabilize psychotropic medications, and will establish outpatient treatment plans. JOB# [id number]
[2018-05-27] MEDS: Multivitamin Tab PO SCH (08:59)
[2018-05-27] MEDS ORDERED: Haloperidol Lactate 5 mg/mL 1mL Vial ONE (14:35)
[2018-05-27] MEDS ORDERED: Haloperidol Lactate 5 mg/mL 1mL Vial IM ONE (14:53)
[2018-05-28] MEDS: Multivitamin Tab PO SCH (08:52)
--- NOTE | 2018-05-28 21:44 | Progress Notes ---
DATE: 05/28/2018 Case was discussed with staff of the patient, reviewed records. This is an 82-year-old female who was admitted on the 05/25/2018. She has been under the care of Dr. Castellanos for bipolar disorder, has been very agitated, irritable, has been anxious, has been suspicious and paranoid. He was called to [facility] to evaluate the patient, she was very manicky, was wiping the floor and the patient was dancing and she kept hitting him on his shoulder, ____ Dr. Castellanos and wants to dance with him. She was requiring redirections. She was very irritable and taylor. She has multiple prior psychiatric hospitalizations for a similar reason. The patient has been on Haldol 5 mg twice a day, lithium 150 mg twice a day, Remeron 50 mg at bedtime, Seroquel 100 mg twice a day and 250 mg at bedtime with no side effects, no sedation, no nausea, no extrapyramidal symptoms. Her medication is reviewed. She is on also medication for blood pressure. Continue the patient on lisinopril ____ mg daily and multivitamin one tablet daily, bisacodyl 10 mg daily. The patient continues to be unpredictable, impulsive, unable to make safe plan for self-care or participate in meaningful conversation, unpredictable, impulsive, manicky. We will continue outpatient group therapy, milieu therapy, adjust medication as needed. [facility]# [id number]
--- NOTE | 2018-05-29 01:36 | Progress Notes ---
DATE: 05/28/2018 PSYCHIATRIC PROGRESS NOTE SUBJECTIVE: Chart reviewed and the patient interviewed. Also discussed the patient's condition with the staff and reviewed records and labs. The patient continue to be severely manicky and she is in angry and in irritable mood. The patient also is dancing and jumping all over the place and intrusive to others and gets aggressive and hitting when staff tries to redirect her. The patient also is still severely suspicious and paranoid and she has severe mood swings. Also, personal hygiene is very poor. Also, the patient at times refused to take her medications and she yesterday refused to take Seroquel. The patient also still wandering into other patient's rooms and entering into other rooms and obnoxious to other patients. ASSESSMENT: The patient is still exhibiting manic behavior and she is still extremely irritable and agitated. TREATMENT PLAN: Continue to monitor her behavior and condition closely. Also, continue working on her poor impulse control. Also, we will add Haldol 5 mg twice a day with plan to change it to Haldol Decanoate injection for better compliance with taking her medications. Also, working with assistant case manager and with the patient's family in regard to discharge plans and placement issue. JOB# [id number]
[2018-05-29] MEDS: Multivitamin Tab PO SCH (08:28)
[2018-05-29] MEDS ORDERED: Haloperidol Lactate 5 mg/mL 1mL Vial IM ONE (15:37)
[2018-05-29] MEDS ORDERED: Haloperidol Lactate 5 mg/mL 1mL Vial ONE (15:37)
--- NOTE | 2018-05-29 20:53 | Progress Notes ---
DATE: 05/29/[address] Castellanos. Case was discussed with staff of the patient with treatment plans and goals and also medication list and labs. The patient continues to be unpredictable and impulsive. She was hiding behind the door when I was looking for her in the room. She was not answering questions appropriately. Continues to be unpredictable, impulsive with episode of agitation, at times, manicky. Continues to be unable to participate in meaningful conversation or make safe plan for self-care. No side effects with the medication, no sedation, no nausea, and no extrapyramidal symptoms. We will continue the patient in group therapy, milieu therapy, and adjust the medications as needed. JOB# [id number]
--- NOTE | 2018-05-30 06:56 | Progress Notes ---
DATE: SUBJECTIVE: Chart reviewed and the patient interviewed. Also discussed the patient's condition with the staff and reviewed records and labs. The patient is still agitated and she is still manicky. The patient also is still hyperverbal and verbally abusive to staff. The patient also is resisting care and she is aggressive with the staff, but on the other hand, the patient is compliant with taking her medications with no side effects of medications. ASSESSMENT: The patient is still manicky. TREATMENT PLAN: Continue to monitor her behavior and her condition closely. Also, continue working on behavioral modification and adjusting psychotropic medications and continue to follow up. JOB# [id number]
[2018-05-30] MEDS: Multivitamin Tab PO SCH (10:00)
--- NOTE | 2018-05-31 07:02 | Progress Notes ---
DATE: SUBJECTIVE: Chart reviewed and the patient interviewed. Also discussed the patient's condition with the staff and reviewed records and labs. The patient is still in angry mood and she is still severely paranoid. The patient also is still restless and she is disheveled. The patient also still needs lots of redirections and she is still exhibiting manic behavior. She also is still talking to herself at times and she still seems to be responding to stimuli. Otherwise, the patient seems to be more compliant with taking her medications with no side effects of medications. Also, the patient is still disheveled. ASSESSMENT: The patient is still exhibiting manic behavior and she is still psychotic. TREATMENT PLAN: Continue monitoring her behavior closely. Also, continue to work on her poor impulse control. Also, working with her daughters in regard to discharge plans and placement issue. JOB# [id number]
[2018-05-31] MEDS: Multivitamin Tab PO SCH (08:19)
[2018-06-01] MEDS: Multivitamin Tab PO SCH (08:08)
[2018-06-01] MEDS ORDERED: Haloperidol Lactate 5 mg/mL 1mL Vial IM ONE (09:24)
--- NOTE | 2018-06-02 02:13 | Progress Notes ---
DATE: SUBJECTIVE: Chart reviewed and the patient interviewed. Also discussed the patient's condition with the staff and reviewed records and labs. The patient is still in angry and in irritable mood. The patient also is still manicky and she is still dancing and she is still jumping up and down and dancing in her room and on the hallway. She also is still aggressive and intrusive to others. The patient also seems to be suspicious and looking at other residents in suspicious and paranoid way. Otherwise, the patient is compliant with taking medications with no side effects although she is still resisting taking medications and staff have to convince her to take the medicine. ASSESSMENT: The patient is still manicky and in irritable mood and paranoid. TREATMENT PLAN: Continue to monitor her behavior closely. Also, we will increase Seroquel to 300 mg at bedtime and also will get lithium blood level and we will continue to follow up. JOB# [id number]
[2018-06-02] MEDS ORDERED: Haloperidol Lactate 5 mg/mL 1mL Vial IM ONE (07:50)
[2018-06-02] MEDS: Multivitamin Tab PO SCH (09:35)
--- NOTE | 2018-06-02 21:27 | Progress Notes ---
DATE: SUBJECTIVE: Chart reviewed and the patient interviewed. Also discussed the patient's condition with the staff and reviewed records and labs. The patient is still severely manicky. The patient was in her room singing loudly and interrupting others and disturbing the unit. She also still manicky and is still agitated, pacing up and down the unit. The patient also is not answering my questions currently, seems to be preoccupied. The patient is disheveled and also personal hygiene is still poor. ASSESSMENT: The patient is still agitated and is still manicky and psychotic. TREATMENT PLAN: The patient is refusing to take her psychotropic medications, encourage the patient to take her medicines. Also, working on her poor impulse and her agitation. Also, working with the family in regard to discharge plans and placement issue. JOB# [id number]
[2018-06-03] MEDS: Multivitamin Tab PO SCH (10:09)
[2018-06-04] MEDS: Multivitamin Tab PO SCH (08:57)
--- NOTE | 2018-06-04 22:33 | Progress Notes ---
DATE: 06/03/2018 SUBJECTIVE: Chart reviewed and the patient interviewed. Also discussed the patient's condition with the staff and reviewed records and labs. The patient continued to be easily agitated and she is still exhibiting manic behavior and the patient is dancing in the hallway and jumping and intrusive to others and hyperverbal with pressured speech. The patient also is still selective with her medications and most of the time, the patient is refusing to take her medications, but she did take her medications yesterday morning. The patient also is still in angry and in irritable mood and easily agitated. Also, difficulty following directions. ASSESSMENT: The patient is still manicky and she is still noncompliant with treatment recommendations and her medications. TREATMENT PLAN: Advised the patient to take her medications regularly. Also, working on her behavior modification. Also, working with the patient's daughter in regard to placement issue and discharge plans. JOB# [id number]
--- NOTE | 2018-06-04 22:57 | Progress Notes ---
DATE: 06/04/2018 An 82-year-old female well known to Dr. Castellanos, I have seen her before as well. The patient was not doing well at [facility], wiping the floor, dancing, and trying to leave. Apparently, daughter was very concerned. On [id number], the patient essentially refusing interview. All questions I asked her are responded with "ask Dr. Castellanos, ask Dr. Castellanos." The patient still noted to be singing loudly causing disturbance, noted to be somewhat bizarre, highly thought processes, impulsive and unpredictable. Medications were noted including dosages and frequencies. Staff notes that she has been following rules and directions were mostly isolative. ASSESSMENT: The patient remains asymptomatic on going odd symptoms, bizarre symptoms, impulsivity is poor. PLAN: We will continue to monitor, adjust and titrate medications. Given her ongoing symptoms, she is not safe for discharge. JOB# [id number]
--- NOTE | 2018-06-05 07:12 | Progress Notes ---
DATE: 06/05/2018 SUBJECTIVE: The patient coming in from [facility]. She was not doing well there, decompensating. Daughter was very alarmed. She is back in the hospital. The patient is still refusing to answer questions, just for "ask Dr. Castellanos" noted to be bizarre, pacing, highly impulsive, directable. Nursing staff noting forgetful at times, she is confused, laughing to herself, withdrawn mostly to herself, appearing isolative, irritable at times and not wanting to answer questions. Medications were noted including doses and frequencies. She slept fairly well last night with an living coach awakening. ASSESSMENT: The patient remains symptomatic, still odd bizarre, not answering questions and psychotic appearing. PLAN: We will continue to monitor, continue Haldol for example Haldol Decanoate, Remeron. We will monitor and follow up. JOB# [id number]
[2018-06-05] MEDS: Multivitamin Tab PO SCH (08:29)
[2018-06-05] MEDS ORDERED: Haloperidol Lactate 5 mg/mL 1mL Vial IM ONE (14:45)
[2018-06-05] MEDS ORDERED: Haloperidol Lactate 5 mg/mL 1mL Vial ONE (14:52)
[2018-06-06] MEDS: Multivitamin Tab PO SCH (08:31)
--- NOTE | 2018-06-06 17:27 | General Progress Note ---
Subjective - Review of Systems Service Date: 06/06/18 Subjective: Patient seen and examined no reported concern Objective - Results Result Diagrams: 05/25/18 21:15 05/25/18 21:15 Recent Labs: Laboratory Last Values WBC 5.0 Th/cmm (4.8-10.8) 05/25/18 21:15 RBC 3.83 Mil/cmm (3.80-5.20) 05/25/18 21:15 Hgb 11.6 gm/dL (12-16) L 05/25/18 21:15 Hct 34.2 % (41.0-60) L 05/25/18 21:15 MCV 89.3 fl (81-100) 05/25/18 21:15 MCH 30.3 pg (27.0-31.0) 05/25/18 21:15 MCHC Differential 34.0 pg (28.0-36.0) 05/25/18 21:15 RDW 12.5 % (11.5-20.0) 05/25/18 21:15 Plt Count 216 Th/cmm (150-400) 05/25/18 21:15 MPV 8.1 fl 05/25/18 21:15 Neutrophils % 68.7 % (40.0-80.0) 05/25/18 21:15 Lymphocytes % 22.4 % (20.0-50.0) 05/25/18 21:15 Monocytes % 5.8 % (2.0-10.0) 05/25/18 21:15 Eosinophils % 2.3 % (0.0-5.0) 05/25/18 21:15 Basophils % 0.8 % (0.0-2.0) 05/25/18 21:15 Sodium 141 mEq/L (136-145) 05/25/18 21:15 Potassium 3.7 mEq/L (3.5-5.1) 05/25/18 21:15 Chloride 111 mEq/L (98-107) H 05/25/18 21:15 Carbon Dioxide 24.0 mEq/L (21.0-31.0) 05/25/18 21:15 Anion Gap 9.7 (7.0-16.0) 05/25/18 21:15 BUN 29 mg/dL (7-25) H 05/25/18 21:15 Creatinine 1.0 mg/dL (0.6-1.2) 05/25/18 21:15 Est GFR ( Amer) TNP 05/25/18 21:15 Est GFR (Non-Af Amer) TNP 05/25/18 21:15 BUN/Creatinine Ratio 29.0 05/25/18 21:15 Glucose 134 mg/dL (70-105) H 05/25/18 21:15 Hemoglobin A1c % 5.6 % (4.0-6.0) 05/25/18 21:15 Calcium 9.7 mg/dL (8.6-10.3) 05/25/18 21:15 Total Bilirubin 0.3 mg/dL (0.3-1.0) 05/25/18 21:15 AST 34 U/L (13-39) 05/25/18 21:15 ALT 23 U/L (7-52) 05/25/18 21:15 Alkaline Phosphatase 70 U/L (34-104) 05/25/18 21:15 Troponin I 0.01 ng/mL (0.01-0.05) 05/25/18 21:15 Total Protein 6.1 gm/dL (6.0-8.3) 05/25/18 21:15 Albumin 4.0 gm/dL (3.7-5.3) 05/25/18 21:15 Globulin 2.1 gm/dL 05/25/18 21:15 Albumin/Globulin Ratio 1.9 (1.0-1.8) H 05/25/18 21:15 Triglycerides 58 mg/dL (<150) 05/25/18 21:15 Cholesterol 180 mg/dL (<200) 05/25/18 21:15 LDL Cholesterol Direct 99 mg/dL (75-193) 05/25/18 21:15 HDL Cholesterol 61 mg/dL (23-92) 05/25/18 21:15 TSH 2.00 uIU/ml (0.34-5.60) 05/25/18 21:15 Salicylates < 25.0 mg/L (30.0-100.0) L 05/25/18 21:15 Acetaminophen < 10.0 ug/mL (10.0-30.0) L 05/25/18 21:15 Ethyl Alcohol < 10 mg/dL (0-10) 05/25/18 21:15 RPR NONREACTIVE (NONREACTIVE) 05/25/18 21:15 - Physical Exam Vitals and I&O: Vital Signs Temp 97.6 F 06/06/18 15:19 Pulse 71 06/06/18 15:19 Resp 18 06/06/18 15:19 BP 101/57 06/06/18 15:19 Pulse Ox 98 06/06/18 15:19 Intake & Output 06/05/18 06/06/18 06/06/18 18:59 06:59 18:59 Intake Total 1200 180 Balance 1200 180 Intake: Oral 1200 180 Other: # Voids 3 1 # Bowel Movements 1 1 Stool Characteristics Soft Active Medications: Current Medications Acetaminophen (Tylenol) 650 mg PO Q4H PRN PRN Reason: Mild Pain / Temp above 100 Stop: 07/24/18 23:15 Al Hydrox/Mg Hydrox/Simethicone (Maalox) 30 ml PO Q4HR PRN PRN Reason: GI DISTRESS Stop: 07/24/18 23:15 Bisacodyl (Dulcolax 10 Mg Supp) 10 mg RC DAILY PRN PRN Reason: Constipation Stop: 07/24/18 23:15 Docusate Sodium (Colace) 100 mg PO DAILY OBIE Stop: 07/25/18 08:59 Last Admin: 06/06/18 08:31 Dose: Not Given Haloperidol (Haldol) 5 mg PO BID [facility]; Protocol Stop: 07/25/18 08:59 Last Admin: 06/06/18 17:17 Dose: Not Given Haloperidol Decanoate (Haldol Dec) 50 mg IM QMONTH [facility]; Protocol Stop: 08/01/18 09:59 Last Admin: 06/02/18 15:00 Dose: 50 mg Lisinopril (Zestril) 10 mg PO DAILY OBIE Stop: 07/25/18 08:59 Last Admin: 06/06/18 08:31 Dose: 10 mg [place] Carbonate (Eskalith) 150 mg PO BID [facility]; Protocol Stop: 07/31/18 08:59 Last Admin: 06/06/18 17:17 Dose: Not Given Magnesium Hydroxide (Milk Of Magnesia) 30 ml PO HS PRN PRN Reason: Constipation Mirtazapine (Remeron) 15 mg PO HS [facility]; Protocol Stop: 07/25/18 20:59 Last Admin: 06/05/18 21:36 Dose: Not Given Multivitamins/Vitamin C (Theragran) 1 tab PO DAILY OBIE Stop: 07/25/18 08:59 Last Admin: 06/06/18 08:31 Dose: Not Given Quetiapine Fumarate (Seroquel) 100 mg PO BID [facility]; Protocol Stop: 07/25/18 08:59 Last Admin: 06/06/18 17:17 Dose: Not Given Quetiapine Fumarate (Seroquel) 300 mg PO HS OBIE Stop: 08/02/18 20:59 Last Admin: 06/05/18 21:36 Dose: Not Given Senna (Senna) 8.6 mg PO HS OBIE Stop: 07/25/18 20:59 Last Admin: 06/05/18 21:36 Dose: Not Given Cardiovascular: Regular rate Lungs: Clear to auscultation - Procedures Procedures: Procedures Procedure Code Date GROUP PSYCHOTHERAPY 97311 05/30/03 OTHER GROUP THERAPY 94.44 03/28/07 Assessment/Plan - Assessment Assessment: DM II HTN Mental health disorder - Plan Plan: Continue current treatment Monitor vitals Fall precautions Psych management per Psychiatrist Nutritional Asmnt/Malnutr-PDOC - Dietary Evaluation Malnutrition Findings (Please click <Entered> for more info): Nutritional Asmnt/Malnutrition Start: 05/28/18 10: 25 Text: Status: Complete Freq: Protocol: Document 05/28/18 10:25 GRAHAM (Rec: 05/28/18 10:29 GRAHAM MARIA ISABEL- [id number]) Nutritional Asmnt/Malnutrition Patient General Information Diagnosis psychosis Pertinent Medical Hx/Surgical Hx DM, HTN, hyperlipidemia, dementia, psychiatric disorder Subjective Information Pt asleep at time of visit did not wake to RD greeting Current Diet Order/ Nutrition Support 2g Na diet Pertinent Medications maalox, dulcolax, MOM, remeron , theragran, senna Pertinent Labs Na 141, K 3.7, Cl 111, CO2 24, BUN 29, Cr 1.0, Ca 9.7, glucose 134 Nutritional Hx/Data Height 1.6 m Height (Calculated Centimeters) 160.0 Current Weight (lbs) 63.957 kg Weight (Calculated Kilograms) 64.0 Weight (Calculated Grams) 46095.5 Body Mass Index (BMI) 25.0 Weight Status Overweight GI Symptoms GI Symptoms None Last BM 05/26 Cultural/Ethnic/Alevism Belief unknown Usual diet at home 2g Na diet Skin Integrity/Comment: melissa score 18, intact Estimated Nutritional Goals BEE in Kcals: Using Current wt Calories/Kcals/Kg 25-30kcals/kg Kcals Calculated 1600-1920kcals/day Protein: Using Current wt Protein g/kg: ~1g/kg Protein Calculated ~64g/day Fluid: ml 1600-1920ml/day (1ml/kcal) Nutritional Problem 1. Problem Problem No nutrition diagnosis at this time Intervention/Recommendation Comments Recommend continuing 2g Na diet Expected Outcomes/Goals Expected Outcomes/Goals PO intake >75% of meals
--- NOTE | 2018-06-06 21:46 | Progress Notes ---
DATE: 06/06/[address] Castellanos. SUBJECTIVE: Case was discussed with staff of the patient, reviewed records. This is one ____ before covering for Dr. Castellanos. The patient came from [facility]. She has been hospitalized many times. The patient does not answer any questions. Continues to be acting bizarre, impulsive, and unpredictable. She has been forgetful, confused, laughing to herself, withdrawn, not participating in a meaningful conversation. She has been compliant with the medication with no side effects, no sedation, no nausea, and no extrapyramidal symptoms. She was started on Haldol Decanoate on 06/02/2018. She is on Seroquel 100 mg twice a day, 300 mg at bedtime that was increased in the last 3 days with no side effects, no sedation, no nausea, and no extrapyramidal symptoms. She is compliant with the medication, no side effects, no sedation, no nausea, and no extrapyramidal symptoms. We will continue to work with the patient in group therapy, milieu therapy, and adjust medications as needed. JOB# [id number]
[2018-06-07] MEDS: Multivitamin Tab PO SCH (10:00)
--- NOTE | 2018-06-07 22:22 | Progress Notes ---
DATE: 06/07/[address] Castellanos. Case was discussed with staff of the patient, reviewed records. The patient reports that only taking the Remeron medication. Continues to be bizarre, staying in bed, hard to interview or get any answer from her unpredictable, impulsive, needing redirection, very poor insight. She is refusing the rest of her medication. I am not sure if she needs to be ____ Dr. Castellanos will be back tomorrow and he will be making those decisions as I cannot put a date for her ____ and so far no side effects with the Remeron. No sedation or nausea and we will continue the patient with group therapy, milieu therapy, and adjust medications. JOB# [id number]
[2018-06-08] MEDS: Multivitamin Tab PO SCH (11:21)
[2018-06-09] MEDS: Multivitamin Tab PO SCH (08:23)
--- NOTE | 2018-06-09 16:15 | Progress Notes ---
DATE: 06/08/2018 Chart reviewed and the patient interviewed. Also discussed the patient's condition with the staff and reviewed records and labs. The patient is still confused and forgetful. The patient also still has difficulty with mood. She also denies any intention to harm herself or others. The patient also is on the other hand manicky and she is still restless and still needs lots of redirections. ASSESSMENT: The patient is still manicky and still needs close monitoring. TREATMENT PLAN: Continue to monitor behavior and condition closely. Also, continue to work on her irritability and also her compliance with taking her medications because the patient is still refusing to take medications and selective in her taking the medicine. Also, I called to the patient's daughter several times and she never answered back and she still does not want her mother to be discharged, confused, she does not know where to get her. Also, insurance case manager told her about options and placement that the patient can go. Planning to discharge the patient tomorrow regardless the patient's daughter approve her or not approve her since it seems that the patient's daughter wants her mother to be in the hospital for maybe a weekend. JOB# [id number]
--- NOTE | 2018-06-10 00:48 | Progress Notes ---
DATE: 06/09/2018 SUBJECTIVE: Chart reviewed and the patient interviewed. Also, discussed the patient's condition with the staff and reviewed records and labs. Also, called the patient's daughter and I spoke with her and I told her about the importance of discharging the patient because there is nothing that can be done for her in the hospital. Apparently, the patient's daughter trying to keep the patient in the hospital "till I get a chance to rent an apartment." She has been ignoring my phone calls and she has been not cooperative with senior media planner to discharge her mother. On the other hand, the patient is also uncooperative and refused to take her medications and she at times gets grouchy and manicky and intrusive. At the same time at the end of my discussion with the daughter, the patient's daughter said that she will get her in to [facility] and she will make arrangements with the case maker. At the same time, we will continue working on her compliance with medications and irritability and we will continue to follow up. JOB# [id number]
[2018-06-10] MEDS: Multivitamin Tab PO SCH (08:57)
[2018-06-10] MEDS ORDERED: Haloperidol Lactate 5 mg/mL 1mL Vial IM ONE (15:00)
[2018-06-10] MEDS ORDERED: Haloperidol Lactate 5 mg/mL 1mL Vial ONE (15:06)
--- NOTE | 2018-06-11 09:39 | Progress Notes ---
DATE: 06/10/2018 PSYCHIATRIC PROGRESS NOTE Chart reviewed and the patient interviewed. Also discussed the patient's condition with the staff and reviewed records and labs. The patient is still demanding and anxious, in irritable moods. Easier to redirect. The patient also is still resisting discharge, but at the same time questionable that [facility] accepted the patient. Planning to discharge the patient today if she was accepted there and follow up there. JOB# [id number]
--- NOTE | 2018-06-14 11:53 | Discharge Summary ---
DATE OF DISCHARGE: 06/10/2018 PATIENT'S AGE: 82-year-old SEX: Female. PHYSICIAN: Liudmila Castellanos MD, MPH FINAL DIAGNOSIS: PRIMARY DIAGNOSIS: Bipolar disorder, manic episode, ____. The patient also was ____ aggressive with other residents. HOSPITAL COURSE: ____ manicky. The patient continued to be agitated and in irritable mood. The patient also was not able to follow directions and she was ____. She also was refusing to take medications but was not aggressive. A trial to discharge the patient to a half-way. The patient's daughter was not very cooperative and she kept finding excuses not to discharge the patient, but finally I spoke to the patient's daughter and the patient was discharged to post[facility]acute hospital in [place]. PHYSICAL EXAMINATION: Of the patient ____ medical problems. LABORATORY AND DIAGNOSTIC DATA: Blood workup showed no major abnormal labs. AFTER DISCHARGE PLANS: The patient discharged from the hospital ____. [facility]# [id number]
== END 2018-06-10 15:40 | DRG 885 ==
LOC: ER 20:37 → GERO 22:10
PROVIDERS: ADMIT Psychiatry & Neurology Psychiatry; ATTEND Psychiatry & Neurology Psychiatry
DX: F31.2 Bipolar disorder, current episode manic severe with psychotic features (principal); E11.9 Type 2 diabetes mellitus without complications; I10 Essential (primary) hypertension; E78.5 Hyperlipidemia, unspecified; F03.90 Unspecified dementia, unspecified severity, without behavioral disturbance, psychotic disturbance, mood disturbance, and anxiety; Z82.49 Family history of ischemic heart disease and other diseases of the circulatory system
CPT/HCPCS: 36415-UA; 80053-TC; 80061-TC; 80320-TC; 80329-TC; 83036-90; 84443-TC; 84484-TC; 85025-TC; 86592-TC; 90899; 93005; G0410; J1200; J1630; J1631; J2060; Z7610

== ENCOUNTER 2018-07-26 16:46 | Inpatient (IN) | payer MEDICARE, MEDICAID ==
--- NOTE | 2018-07-26 17:03 | ED Physician Chart ---
ED Chief Complaint/HPI - Patient Information Date Seen:: 07/26/18 Time Seen:: 16:45 Chief Complaint:: Agitation History of Present Illness:: onset x 2 days of agitation and aggressive/hostile behavior; no report of trauma , H/As, neck pain, SIs, cough, C/P, SOB, Abd. Pain, A/N/V/D/C, fever, chills, or urinary s/s Allergies:: Allergies Allergy/AdvReac Type Severity Reaction Status Date / Time No Known Allergies Allergy Verified 05/25/18 21:53 Historian:: Patient, EMS Review:: Nurse's Note Reviewed, Old Chart Reviewed, EMS run form Reviewed ED Review of Systems - Review of Systems General/Constitutional: No fever, No chills, No weight loss, No weakness, No diaphoresis, No edema, No loss of appetite Skin: No skin lesions, No rash, No bruising Head: No headache, No light-headedness Eyes: No loss of vision, No pain, No diplopia ENT: No earache, No nasal drainage, No sore throat, No tinnitus Neck: No neck pain, No swelling, No thyromegaly, No stiffness, No mass noted Cardio Vascular: No chest pain, No palpitations, No PND, No orthopnea, No edema Pulmonary: No SOB, No cough, No sputum, No wheezing GI: No nausea, No vomiting, No diarrhea, No pain, No melena, No hematochezia, No constipation, No hematemesis G/U: No dysuria, No frequency, No hematuria, No nacturia Soup Mixer: No vaginal discharge, No abnormal vaginal bleed, No contraction Musculoskeletal: No bone or joint pain, No back pain, No muscle pain Endocrine: No polyuria, No polydipsia Psychiatric: Prior psych history, Depression, Anxiety, No suicidal ideation, No homicidal ideation, No auditory hallucination, No visual hallucination Hematopoietic: No bruising, No lymphadenopathy Allergic/Immuno: No urticaria, No angioedema Neurological: No syncope, No focal symptoms, No weakness, No paresthesia, No headache, No seizure, No dizziness, Confusion, No vertigo ED Past Medical History - Past Medical History Obtainable: Yes Past Medical History: HTN, DM, CVA/TIA, Dyslipidemia, Dementia Family History: Diabetes Melitus, HTN Social History: Non Smoker, No Alcohol, No Drug Use, , Care Facility Surgical History: None Psychiatricy History: Depression, Schizophrenia, Dementia Medication: Reviewed Family Medical History - Family Member Mother History Unknown: Yes Ethnicity: Unknown Living Status: Unknown Hx Family Cancer: (unknown) Hx Family Coronary Artery Disease: (unknown) Hx Family Congestive Heart Failure: (unknown) Hx Family Hypertension: (unknown) Hx Family Stroke: (unknown) Hx Family Diabetes: (unknown) Hx Family Seizures: (unknown) Hx Family Dementia: (unknown) Hx Family AIDS: (unknown) Hx Family HIV: No Hx Family COPD: (unknown) Hx Family Hepatitis: (unknown) Hx Family Psychiatric Problems: (unknown) Hx Family Tuberculosis: (unknown) ED Physical Exam - Physical Examination General/Constitutional: Awake, Well-developed, well-nourished, Alert, No distress, GCS 15, Non-toxic appearing, Ambulatory Head: Atraumatic Eyes: Lids, conjuctiva normal, PERRL, EOMI Skin: Nl inspection, No rash, No skin lesions, No ecchymosis, Well hydrated, No lymphadenopathy ENMT: External ears, nose nl, TM canals nl, Nasal exam nl, Lips, teeth, gums nl , Oropharynx nl, Tonsils nl Neck: Nontender, Full ROM w/o pain, No JVD, No nuchal rigidity, No bruit, No mass, No stridor Respiratory: Nl effort/Exclusion, Clear to Auscultation, No Wheeze/Rhonchi/Rales Cardio Vascular: RRR, No murmur, gallop, rubs, NL S1 S2, Carotid/Femoral/Distal pulses equal bilaterally GI: No tenderness/rebounding/guarding, No organomegaly, No hernia, Normal BS's, Nondistended, No mass/bruits, No McBurney tenderness : No CVA tenderness Extremities: No tenderness or effusion, Full ROM, normal strength in all extremities, No edema, Normal digits & nails Neuro/Psych: Alert/oriented, DTR's symmetric, Normal sensory exam, Normal motor strength, Judgement/insight normal, Mood normal, Normal gait, No focal deficits Other Neuro/Psych comments:: + Psychomotor Agitation; no SIs; Mood/Affect: Labile Misc: Normal back, No paraspinal tenderness ED Labs/Radiology/EKG Results - Lab Results Comments:: Reviewed - EKG Interpretations EKG Time:: 17:18 Rate & Rhythm: 71; NSR Comments:: non-specific st-t changes ED Septic Shock - . Is Septic Shock (SBP<90, OR Lactate>4 mmol\L) present?: No ED Reassessment (Disposition) - Reassessment Reassessment Condition:: Improved - Diagnosis Diagnosis:: Agitation; Psychosis; Medical Clearance; Schizo-Affective Disorder - Aftercare/Follow up Instructions Aftercare/Follow-Up Instructions:: Counseled pt regarding lab results/diagnosis & need follow up, Counseled pt & family regarding lab results/diagnosis & need follow up - Patient Disposition Discharge/Transfer:: Acute Care w/in this hosp Admitted to:: [facility] Condition at Disposition:: Stable, Improved
[2018-07-26 17:13] LABS: % BASOPHILS 0.4 % (0.0-2.0); % EOSINOPHILS 3.9 % (0.0-5.0); % LYMPHOCYTES 23.9 % (20.0-50.0); % MONOCYTES 6.5 % (2.0-10.0); % NEUTROPHILS 65.3 % (40.0-80.0); EOSINOPHILE ABSOLUTE 0.3 Th/cmm (0.1-0.4); HEMATOCRIT 37.3 % (41.0-60); HEMOGLOBIN 12.2 gm/dL (12-16); LYMPHOCYTE ABSOLUTE 1.6 Th/cmm (1.5-3.0); MEAN CELL VOLUME 90.4 fl (81-100); MEAN CORPUSCULAR HEMOGLOBIN 29.7 pg (27.0-31.0); MEAN CORPUSCULAR HGB CONC 32.8 pg (28.0-36.0); MEAN PLATELET VOLUME 7.8 fl; MONOCYTE ABSOLUTE 0.4 Th/cmm (0.3-1.0); NEUTROPHILE ABSOLUTE 4.4 Th/cmm (1.8-8.0); PLATELET COUNT 268 Th/cmm (150-400); RED BLOOD COUNT 4.12 Mil/cmm (3.80-5.20); RED CELL DISTRIBUTION WIDTH 13.4 % (11.5-20.0); WHITE BLOOD COUNT 6.7 Th/cmm (4.8-10.8)
[2018-07-26 17:44] LABS: ACETAMINOPHEN < 10.0 ug/mL (10.0-30.0); ALB/GLOB RATIO 1.7 (1.0-1.8); ALBUMIN 4.2 gm/dL (3.7-5.3); ALKALINE PHOSPHATASE 70 U/L (34-104); ANION GAP 12.1 (7.0-16.0); BILIRUBIN,TOTAL 0.4 mg/dL (0.3-1.0); BUN - UREA NITROGEN 24 mg/dL (7-25); CALCIUM SERUM 10.1 mg/dL (8.6-10.3); CARBON DIOXIDE 24.2 mEq/L (21.0-31.0); CHLORIDE 108 mEq/L (98-107); CHOLESTEROL 201 mg/dL (<200); GLUCOSE 101 mg/dL (70-105); HDL -HIGH DENSITY LIPOPROTEIN 80 mg/dL (23-92); POTASSIUM SERUM 4.3 mEq/L (3.5-5.1); SALICYLATES (ASPIRIN) < 25.0 mg/L (30.0-100.0); SGOT 19 U/L (13-39); SGPT/ALT 17 U/L (7-52); SODIUM SERUM 140 mEq/L (136-145); TOTAL PROTEIN,SERUM 6.7 gm/dL (6.0-8.3); TRIGLYCERIDES 90 mg/dL (<150)
[2018-07-26 18:01] LABS: URINE SOURCE CLEAN C
[2018-07-26 18:03] LABS: URINE BILIRUBIN NEGATIVE (NEGATIVE); URINE BLOOD NEGATIVE (NEGATIVE); URINE CLARITY CLEAR (CLEAR); URINE COLOR YELLOW; URINE GLUCOSE (UA) NEGATIVE (NEGATIVE); URINE KETONE NEGATIVE (NEGATIVE); URINE LEUKOCYTE ESTERASE MODERATE (NEGATIVE); URINE NITRATE NEGATIVE (NEGATIVE); URINE PH 5.5 (4.6 - 8.0); URINE PROTEIN NEGATIVE (NEGATIVE); URINE UROBILINOGEN 0.2 E.U./dL (0.2 - 1.0)
[2018-07-26 18:04] LABS: URINE MICROSCOPIC INDICATED? YES
[2018-07-26 18:06] LABS: URINE RBC 0-2 /hpf (0-5)
[2018-07-26 18:07] LABS: URINE BACTERIA 1+ /hpf (NONE SEEN); URINE EPITHELIAL CELLS FEW /lpf (FEW)
[2018-07-26 18:10] LABS: AMPHETAMINE URINE NEGATIVE (NEGATIVE); BARBITURATES URINE NEGATIVE (NEGATIVE); BENZODIAZEPINES QUAL URINE NEGATIVE (NEGATIVE); COCAINE METABOLITE QUAL URINE NEGATIVE (NEGATIVE); METHADONE URINE NEGATIVE (NEGATIVE); METHAMPHETAMINES QUAL URINE NEGATIVE (NEGATIVE); OPIATES (MORPHINE) QUAL. URINE NEGATIVE (NEGATIVE); PHENCYCLIDINE (PCP) URINE NEGATIVE (NEGATIVE); TRICYCLICS (TCA) QUAL. URINE POSITIVE (NEGATIVE)
[2018-07-26 18:11] LABS: CANNABINOID THC NEGATIVE (NEGATIVE)
[2018-07-26] MEDS ORDERED: Magnesium Hydroxide (MOM) 30 mL UDC PO PRN (20:27)
[2018-07-26] MEDS ORDERED: Maalox 30 mL Cup PO PRN (20:27)
[2018-07-26 21:11] LABS: A1C % 6.7 % (4.0-6.0)
[2018-07-26 22:27] VITALS: BP 102/70
[2018-07-27] MEDS: Multivitamin w/ Minerals Tab PO SCH (09:24)
[2018-07-27] MEDS: INSULIN ASPART SLIDING SCALE 100 UNITS/ML UNIT SUBQ SCH ×3 (11:38→21:13)
--- NOTE | 2018-07-27 23:47 | Psychiatric Evaluation ---
DATE OF SERVICE: JUSTIFICATION FOR HOSPITALIZATION: Agitation, aggressive behavior. CHIEF COMPLAINT: "Dr. Castellanos has a rope around my neck." HISTORY OF PRESENT ILLNESS: An 82-year-old female, believing that Emanuel is controlling her and controlling her life, notes that [facility], fixated on Dr. Castellanos, telling me to contact Dr. Castellanos for more information. The patient with history of agitation and aggressive behaviors, hostile behaviors. The patient is irritable on exam, poor historian, not giving me much information. States she feels "okay." Sleep, " fine." PAST PSYCHIATRIC HISTORY: Admissions in the past. FAMILY HISTORY: Noncontributory. SOCIAL HISTORY: Born in [place]. She states she was raised on plantation, . She states she was for 30 years, 4 daughters, 5 grandkids. MEDICATIONS: Noted. MENTAL STATUS EXAMINATION: Stated age, fair eye contact, -Wallisian female. Mood "fine." Affect constricted. Thought processes were somewhat tangential. No SI, no HI. No current psychotic symptoms. Insight and judgment diminished. PROVISIONAL DIAGNOSIS: Schizophrenia. MEDICAL: Please see full H and P. ESTIMATED LENGTH OF STAY: 7-10 days. FUNCTIONAL IMPAIRMENTS: None noted. ASSESSMENT: The patient requiring hospitalization, agitated, combative, aggressive. PLAN: We will restart medications. The patient may benefit from dosing of for example Seroquel as she had been on antipsychotic medications in the past. CONDITIONS FOR DISCHARGE: Improved mood, improved affect, cessation of any SI or HI, better control of any psychotic symptoms. [facility]# [id number]
[2018-07-28] MEDS: INSULIN ASPART SLIDING SCALE 100 UNITS/ML UNIT SUBQ SCH ×4 (06:35→20:30)
[2018-07-28] MEDS: Multivitamin w/ Minerals Tab PO SCH (08:38)
--- NOTE | 2018-07-28 15:26 | Progress Notes ---
DATE: 07/28/[address] Castellanos. SUBJECTIVE: Case was discussed with staff of the patient, reviewed records. This is an 82-year-old female who is well-known case to me, I have seen her before and covering for Dr. Castellanos. The patient believes that Dr. Castellanos has had a rope around her neck and controlling her life. She came from [facility], fixated on Dr. Castellanos. She was history of agitation and aggressive. Also, she has a history of being paranoid towards her daughter. She was a poor historian. She was here recently less than 2 months ago. She was seen by Dr. Ch yesterday who have her back on her medication and she is on Seroquel 25 mg at bedtime with no side effects, no sedation or nausea. Continues to be somewhat delusional, suspicious and paranoid. No side effects with the medication, no sedation, no nausea, no extrapyramidal symptoms. We will continue to work with the patient in group therapy, milieu therapy, and adjust the medications as needed. JOB# [id number]
--- NOTE | 2018-07-29 00:05 | History & Physical ---
ADMIT DATE: 07/26/2018 REASON FOR CONSULTATION: Medical management. HISTORY OF PRESENT ILLNESS: This is an 82-year-old female, who was admitted to Geropsych Unit for underlying psychiatric illnesses by Dr. Castellanos. Dr. Castellanos requested medical H and P on this patient. During my evaluation, the patient denies any medical complaints. She seems confused. The patient is well known to me from my office and previous admissions. PAST MEDICAL HISTORY: Hypertension, diabetes, and mental health disorder. PAST SURGICAL HISTORY: Colon surgery in the past. FAMILY HISTORY: No symptoms. SOCIAL HISTORY: No reported alcohol, tobacco, or street drug use. CURRENT MEDICATIONS: Tylenol, Maalox, Colace, Zestril, Ativan, milk of mag, Bactroban, Seroquel, Ambien. REVIEW OF SYSTEMS: No reported fever, no diarrhea, no vomiting, no abdominal pain, no headache, no chest pain, no shortness of breath, no dizziness or palpitations. PHYSICAL EXAMINATION: VITAL SIGNS: Temperature 97.8, pulse 71, respirations 20, blood pressure 112/61. HEART: S1, S2 normal. LUNGS: Clear to auscultation. ABDOMEN: Soft. EXTREMITIES: Mild edema. ASSESSMENT: 1. Diabetes. 2. Hypertension. 3. MRSA colonization. 4. Mental health disorders. PLAN: The patient's blood sugar seems fairly controlled. We will continue to monitor. We will continue Zestril. Monitor her blood pressures. Psych evaluation and management per psychiatrist. Bactroban for MRSA colonization. The patient's condition and plan of care with nursing staff. Thank you Dr. Castellanos for allowing me to participate in the care of this patient. PSYCHIATRIC# [id number]
[2018-07-29] MEDS: INSULIN ASPART SLIDING SCALE 100 UNITS/ML UNIT SUBQ SCH ×4 (07:37→21:59)
[2018-07-29] MEDS: Multivitamin w/ Minerals Tab PO SCH (08:29)
--- NOTE | 2018-07-30 00:16 | Progress Notes ---
DATE: 07/29/2018 SUBJECTIVE: Case is discussed with staff of the patient and reviewed records. The patient continues to be paranoid and delusional. She was refusing medication; however, she took it last night. 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 No side effects with the medication, no sedation, no nausea, no extrapyramidal symptoms. PLAN OF CARE: We will continue to work with the patient in group therapy, milieu therapy, adjust medication as needed. JOB# [id number]
[2018-07-30] MEDS: INSULIN ASPART SLIDING SCALE 100 UNITS/ML UNIT SUBQ SCH ×4 (08:02→16:54)
[2018-07-30] MEDS: Multivitamin w/ Minerals Tab PO SCH (08:39)
--- NOTE | 2018-07-30 19:03 | Progress Notes ---
DATE: 07/30/2018 SUBJECTIVE: The patient is currently in the hospital, agitated, aggressive behaviors, talking about Dr. Castellanos, delusional about Dr. Castellanos. On [id number], the patient irritable on exam, does not want to talk to me, tells me to come back at a later time. Dr. Huber is seeing the patient over the past few days, noted to be delusional, paranoid, refusing medications. 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 Very poor insight, multiple rounds of hospitalizations this year alone. Staff noting that she remains paranoid, delusional, believing people are giving her shots and holding her down, making nonsensical statements. ASSESSMENT: The patient unruly, periods of agitation, refusing to speak with me. The patient with a long history of psychiatric hospitalizations. I have seen this patient multiple times at this hospital, other hospital. The patient remains agitated at times, ongoing concerns for psychotic behaviors. We will monitor and follow up. JOB# [id number]
[2018-07-31] MEDS: INSULIN ASPART SLIDING SCALE 100 UNITS/ML UNIT SUBQ SCH ×5 (01:12→20:51)
[2018-07-31] MEDS: Multivitamin w/ Minerals Tab PO SCH (08:59)
--- NOTE | 2018-07-31 12:48 | Progress Notes ---
DATE: 07/31/2018 SUBJECTIVE: The patient is currently in the hospital, had been agitated, aggressive. Dr. Castellanos fixated on her daughter. "My daughter put me here." She told Dr. Castellanos that she had enough with me. "She needs her own life now." The patient believes she is being incarcerated. The patient is complaining of other patient's screaming. The patient believing that nurses are talking about her, "they say that I am evil." The patient notes that she was injected 5 times, which is not true. The patient believes she is here "to make a judgment about me." The patient ruminative, seems quite suspicious of staff or others, highly impulsive, unpredictable, and has had multiple interactions with this patient before she can be quite intense at times. ASSESSMENT: The patient remains symptomatic, ongoing symptoms, social withdrawal, delusional, believing that people are holding her down giving her shots, fixated on Dr. Castellanos and her daughter. PLAN: We will continue to monitor the patient with ongoing symptoms. We will titrate dosing of the Seroquel today. JOB# [id number]
[2018-08-01] MEDS: INSULIN ASPART SLIDING SCALE 100 UNITS/ML UNIT SUBQ SCH ×4 (06:47→20:57)
[2018-08-01] MEDS: Multivitamin w/ Minerals Tab PO SCH (08:25)
--- NOTE | 2018-08-01 17:48 | Progress Notes ---
DATE: 08/01/2018 The patient in the hospital, agitated, has been aggressive previously, making claims that she was on standby for the [employer] program during the __80's__, seems delusional, grandiose, very upset, escalates during my examination to the point that I need to exit the interview because she starts getting upset and intense. She remains forgetful, poorly oriented, claims she is here because her daughter and Dr. Castellanos are here, but "Dr. Castellanos does not know me very well." The patient is easily agitated, sometimes aggressive with staff, argumentative, impulsive, unpredictable. ASSESSMENT: The patient remains symptomatic, ongoing delusions, grandiosities. PLAN: We will continue to monitor. I will be titrating her dosage of medications, increasing her doses of Seroquel. Given her ongoing symptoms, she is not safe for discharge at this time. JOB# [id number] MTDAlisha
[2018-08-02] MEDS: INSULIN ASPART SLIDING SCALE 100 UNITS/ML UNIT SUBQ SCH ×4 (07:45→20:30)
[2018-08-02] MEDS: Multivitamin w/ Minerals Tab PO SCH (08:38)
--- NOTE | 2018-08-02 18:16 | Progress Notes ---
DATE: 08/02/2018 Case was discussed with staff of the patient, reviewed records. The patient has probable court hearing today and it was upheld on the ground of grave disability. The patient continues to be delusional. Continues to be paranoid. Continues to be unable to make safe plan for self-care. Continues to be unpredictable, impulsive and needing redirection, grandiose. 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 Continues to have poor insight. No side effects, no sedation, no sedation, no nausea, no extrapyramidal symptoms. The patient last time had to go to a SNF facility and apparently she did come from SNF facility and yesterday her Seroquel was increased to 75 mg at bedtime by Dr. Ch with no side effects, no sedation, no nausea, and no extrapyramidal symptoms. We will continue the patient in group therapy, milieu therapy, adjust medication as needed. JOB# [id number]
[2018-08-03] MEDS: INSULIN ASPART SLIDING SCALE 100 UNITS/ML UNIT SUBQ SCH ×4 (08:59→20:29)
[2018-08-03] MEDS: Multivitamin w/ Minerals Tab PO SCH (09:10)
--- NOTE | 2018-08-03 20:20 | Progress Notes ---
DATE: 08/03/2018 SUBJECTIVE: Case was discussed with staff of the patient. The patient continues to be confused, talking about things about she said that she was living in apartment and there is a lawsuit as the landlord was charging them for ____ and apparently kicked them out. She continues to be unpredictable, impulsive, needing redirection, paranoid. She was not sure where she was living prior to her coming here. According to records, she came from a nursing facility; however, we will double check, I tried to call her daughter yesterday. I got a voice mail but report that there was no place for more meal. It was full, so I could leave her a message, but I will keep trying. No side effects with the medication, no sedation, no nausea, no extrapyramidal symptoms. We will continue the patient in group therapy, milieu therapy and adjust medication. JOB# [id number]
[2018-08-04] MEDS: INSULIN ASPART SLIDING SCALE 100 UNITS/ML UNIT SUBQ SCH ×4 (06:32→21:05)
[2018-08-04] MEDS: Multivitamin w/ Minerals Tab PO SCH (13:12)
--- NOTE | 2018-08-04 16:50 | Progress Notes ---
DATE: 08/04/2018 FOLLOW-UP PROGRESS NOTE PROGRESS ON THE UNIT: Case was discussed with staff of the patient, reviewed records. The patient continues to be grandiose and delusional. She continues to have poor insight. She continues to be unable to make safe plan for self-care. Her Seroquel dose was increased three days ago to 75 mg at bedtime. She tends to be intrusive. I will be increasing it to 100 mg at bedtime. Apparently, the family wants her to go home. Yet, there are some issues with APS that need to be addressed. The patient came from [facility] and apparently they do not want her back, I was told that she cannot go back there, I do not know if this is sure or not but this is what they told me. We still do not have a good discharge plan for her that is agreeable to all. I will be increasing Seroquel to 100 mg at bedtime. We will continue to work with the patient in group therapy and milieu therapy, adjust the medication as needed. JOB# [id number]
[2018-08-05] MEDS: INSULIN ASPART SLIDING SCALE 100 UNITS/ML UNIT SUBQ SCH ×4 (06:44→21:01)
[2018-08-05] MEDS: Multivitamin w/ Minerals Tab PO SCH (08:37)
--- NOTE | 2018-08-05 16:47 | Progress Notes ---
DATE: 08/05/2018 Case was discussed with staff of the patient, reviewed records. The patient is tolerating increase in Seroquel with no side effects. Continues to be delusional. She reports, "I am not delusional." She believed that the production superintendent let her go. Continues to be unable to make safe plan for self-care, unpredictable, impulsive, needing redirection. Apparently, there were some issues about how her family spend her money, so that need to be cleared by APS. No side effects of the medication, no sedation, no nausea, no extrapyramidal symptoms. We will continue to work with the patient in group therapy, milieu therapy, and adjust medication as needed. JOB# [id number]
[2018-08-06] MEDS: INSULIN ASPART SLIDING SCALE 100 UNITS/ML UNIT SUBQ SCH ×4 (06:35→20:57)
[2018-08-06] MEDS: Multivitamin w/ Minerals Tab PO SCH (10:01)
--- NOTE | 2018-08-06 22:09 | Progress Notes ---
DATE: 08/06/2018 SUBJECTIVE: The patient was seen and evaluated. The patient's chart reviewed. This is Dr. Gibson covering for Dr. Castellanos. Today on pzjd-tl-[id number] evaluation, the patient reports that she is very angry because she feels that people are conspiring including her daughter. She is very angry that she is here and then she starts pacing and following me to every room as I walked and she reports "I am just watching you." MENTAL STATUS EXAMINATION: Psychotic, delusional, still watching suspicious. ASSESSMENT AND PLAN: This is an 82-year-old female with a history of schizophrenia, presents suspicious as noted above and paranoid. We will continue with primary psychiatrist's treatment plan and goals, which includes lisinopril, lorazepam, and quetiapine 100 mg p.o. at bedtime, was recently increased at 08/07/2018. JOB# [id number]
[2018-08-07] MEDS: INSULIN ASPART SLIDING SCALE 100 UNITS/ML UNIT SUBQ SCH ×4 (06:43→20:23)
[2018-08-07] MEDS: Multivitamin w/ Minerals Tab PO SCH ×2 (08:18→08:32)
--- NOTE | 2018-08-07 19:25 | Progress Notes ---
DATE: 08/07/2018 SUBJECTIVE: The patient was seen and evaluated. The patient's chart reviewed. Covering for Dr. Castellanos. Today on hbyd-jg-hcjx evaluation, the patient presents very paranoid, believing that I am poisoning every patient and reports that she needs to follow "protocol." MENTAL STATUS EXAMINATION: Suspicious, paranoid, restless. ASSESSMENT AND PLAN: The patient is an 82-year-old female with a history of paranoid schizophrenia, presenting disorganized and very suspicious and paranoid that the doctors are poisoning the staff members. JOB# [id number]
[2018-08-08] MEDS: INSULIN ASPART SLIDING SCALE 100 UNITS/ML UNIT SUBQ SCH ×4 (06:50→21:03)
[2018-08-08] MEDS: Multivitamin w/ Minerals Tab PO SCH (08:45)
--- NOTE | 2018-08-09 00:33 | Progress Notes ---
DATE: 08/08/2018 Case was discussed with staff of the patient, reviewed records. The patient continues to be delusional and paranoid. She reports that there is a lawsuit going on for the past few months. She reported that she went to [place] and over there, she fell down, caused her to have a brain contusion. She had to go to [facility], it was not for Dr. Drake, that she would be in a bad shape. The patient is unable to tell me how long she has been here. She does not known the name of the facility and she was able to tell me the date. Continues to be unpredictable, impulsive, needing redirection. I will be increasing the Seroquel dose further to 125 mg and so far no side effects with the medication, no sedation, no nausea, no extrapyramidal symptoms. She continued to talk about the same issue. She showed me the same report that she had in her hand over and over again, which is about review, does not say much. We will continue outpatient group therapy, milieu therapy and adjust medication as needed. JOB# [id number]
[2018-08-09] MEDS: INSULIN ASPART SLIDING SCALE 100 UNITS/ML UNIT SUBQ SCH ×4 (06:59→20:46)
[2018-08-09] MEDS: Multivitamin w/ Minerals Tab PO SCH (09:15)
--- NOTE | 2018-08-09 20:49 | Progress Notes ---
DATE: 08/09/2018 SUBJECTIVE: Case was discussed with staff of the patient, reviewed records. The patient continues to be paranoid and delusional. The staff report, she is being violent towards her daughter. The staff has a concern about ____ issues with the family; however, it seem like, it was told that we need to work on placement for her, though the family wants her to go back home; however, because of the concern about the finance. I am not sure that would be a good plan. No side effects with them. I did increase her Seroquel dose yesterday. It was too early to make further adjustment and we will continue outpatient group therapy, milieu therapy, and adjust medication as needed. [facility]# [id number]
[2018-08-10] MEDS: INSULIN ASPART SLIDING SCALE 100 UNITS/ML UNIT SUBQ SCH ×4 (06:43→21:35)
[2018-08-10] MEDS: Multivitamin w/ Minerals Tab PO SCH (09:17)
--- NOTE | 2018-08-11 01:10 | Progress Notes ---
DATE: 08/10/2018 SUBJECTIVE: Case was discussed with staff of the patient, reviewed records. The patient continues to have poor insight. She is unpredictable, impulsive, and needing redirection. She continues to be delusional. She continues to be unable to make safe plan for self-care. No side effects with the medication, no sedation, no nausea, and no extrapyramidal symptoms. We will continue to work with the patient in group therapy, milieu therapy, and adjust the medication as needed. JOB# [id number]
[2018-08-11] MEDS: INSULIN ASPART SLIDING SCALE 100 UNITS/ML UNIT SUBQ SCH ×4 (06:43→21:00)
[2018-08-11] MEDS: Multivitamin w/ Minerals Tab PO SCH (09:00)
--- NOTE | 2018-08-11 17:21 | Progress Notes ---
DATE: 08/11/2018 Case was discussed with staff of the patient, reviewed records. The patient continues to be delusional, paranoid, and grandiose. 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 Continues to be unpredictable and impulsive. The staff, there is a concern about where she is going to go ____ as the family wants her to go home, but yet she came from [facility] and I tried to call her daughter many times and I was able to put in my office number, but I never heard from her and her lab work showed only we have a blood sugar. No other lab work is available. We will continue to work with the patient in group therapy, milieu therapy, and adjust the medications as needed. JOB# [id number]
[2018-08-12] MEDS: INSULIN ASPART SLIDING SCALE 100 UNITS/ML UNIT SUBQ SCH ×4 (06:53→21:23)
[2018-08-12] MEDS: Multivitamin w/ Minerals Tab PO SCH (09:52)
--- NOTE | 2018-08-12 21:17 | Progress Notes ---
DATE: 08/12/2018 Case was discussed with staff of the patient, reviewed records. The patient continues to be grandiose, delusional and paranoid. She has multiple complaints about the staff. She has been compliant with the medication with no side effects, no sedation, no nausea, no extrapyramidal symptoms. There is a concern about where she is going to go and I talked to Leann, the case sealer and she reports she will be talking to her daughter to see who will take financial responsibility or to agree on where the patient will go as apparently she is supposed to be going back to [facility]. However, there is a concern if this place is appropriate for her as her family wants her to go home and so we need to come up with the discharge plan. She refused to sign voluntary and we will continue to work with the patient in group therapy, milieu therapy, and adjust the medications as needed. JOB# [id number]
[2018-08-13] MEDS: INSULIN ASPART SLIDING SCALE 100 UNITS/ML UNIT SUBQ SCH ×4 (06:49→20:53)
[2018-08-13] MEDS: Multivitamin w/ Minerals Tab PO SCH (09:28)
[2018-08-14] MEDS: INSULIN ASPART SLIDING SCALE 100 UNITS/ML UNIT SUBQ SCH ×4 (06:46→20:34)
[2018-08-14] MEDS: Multivitamin w/ Minerals Tab PO SCH (09:01)
[2018-08-15] MEDS: INSULIN ASPART SLIDING SCALE 100 UNITS/ML UNIT SUBQ SCH ×4 (06:30→21:40)
--- NOTE | 2018-08-15 07:03 | Progress Notes ---
DATE: 08/13/2018 The patient was seen and evaluated and chart reviewed. Covering for Dr. Castellanos. SUBJECTIVE: Today, on ipvn-qn-grpg evaluation the patient continues to pace in and out of the unit, become very irritable and suspicious, reporting that the physicians are "conspiring against her to keep her here long." When attempted to discuss with her that, she ____ "I just said too much." MENTAL EXAMINATION: Irritable, paranoid, suspicious. ASSESSMENT AND PLAN: The patient is an 82-year-old female who continues to be suspicious and paranoid. We will continue with primary psychiatric's treatment plan and goals of Seroquel 125 mg at nighttime with the Ativan as needed. [facility]# [id number]
[2018-08-15] MEDS: Multivitamin w/ Minerals Tab PO SCH (09:23)
--- NOTE | 2018-08-15 10:36 | Progress Notes ---
DATE: 08/14/2018 SUBJECTIVE: The patient was seen and evaluated. The patient's chart reviewed. Covering for Dr. Castellanos. Today on uiht-rh-othj evaluation, the patient continues to perseverate. She is [facility] and she said she has multiple recruitment advertising manager already lined up. When attempting to validate her emotions, she became very deliriant and believes that she is being poisoned. MENTAL STATUS EXAMINATION: Delusional and disorganized. ASSESSMENT AND PLAN: The patient is an 82-year-old female with a history of severe schizophrenia and also neurocognitive impairment, unable to provide safe plan. She continues to feel that she has been conspired again. JOB# [id number]
[2018-08-16] MEDS: INSULIN ASPART SLIDING SCALE 100 UNITS/ML UNIT SUBQ SCH ×4 (06:36→20:55)
[2018-08-16] MEDS: Multivitamin w/ Minerals Tab PO SCH (10:09)
--- NOTE | 2018-08-16 21:54 | Discharge Summary ---
DATE OF DISCHARGE: 08/16/2018 Chart reviewed and the patient interviewed. Also, discussed the patient's condition with the staff and reviewed records and labs. The patient is still anxious and still have episodes of irritability and agitation, but seems to be slightly less than before. She also still seems to be suspicious and still needs redirections, but also seems to be less than before. According to case sealer, the patient accepted in [facility], but still has difficulty dealing with the patient's daughter. We will discharge her there and the patient was supposed to be discharged there yesterday, but problem with her daughter to take her according to the social work job titles. We will try to discharge the patient today and to be followed as an outpatient after her discharge. JOB# [id number]
--- NOTE | 2018-08-16 23:54 | Progress Notes ---
DATE: 08/15/2018 Chart reviewed and the patient interviewed. Also discussed the patient's condition with the staff and reviewed records and labs. Also discussed the patient's condition with director of casework "Leann" who was also present on the unit during my evaluation of my patient. The patient seems to be slightly calmer and seems to be less irritable and less agitated. She also seems to be more cooperative and more compliant with her treatment. The patient also denies any intention to harm herself or others. manager renewable energy said that the [facility] accepted the patient and the patient can go there. ASSESSMENT: The patient seems to be slightly calmer and have a place to go. We will discharge the patient today to [facility] and will continue her treatment as an outpatient and also in [facility]. JOB# [id number]
[2018-08-17] MEDS: INSULIN ASPART SLIDING SCALE 100 UNITS/ML UNIT SUBQ SCH ×4 (06:29→20:48)
[2018-08-17] MEDS: Multivitamin w/ Minerals Tab PO SCH (08:53)
[2018-08-18] MEDS: INSULIN ASPART SLIDING SCALE 100 UNITS/ML UNIT SUBQ SCH ×4 (06:56→20:59)
[2018-08-18] MEDS: Multivitamin w/ Minerals Tab PO SCH (08:58)
[2018-08-19] MEDS: INSULIN ASPART SLIDING SCALE 100 UNITS/ML UNIT SUBQ SCH ×4 (06:31→21:01)
[2018-08-19] MEDS: Multivitamin w/ Minerals Tab PO SCH (10:18)
[2018-08-20] MEDS: INSULIN ASPART SLIDING SCALE 100 UNITS/ML UNIT SUBQ SCH ×4 (06:35→21:02)
[2018-08-20] MEDS: Multivitamin w/ Minerals Tab PO SCH (08:45)
[2018-08-21] MEDS: INSULIN ASPART SLIDING SCALE 100 UNITS/ML UNIT SUBQ SCH ×4 (06:37→21:00)
[2018-08-21] MEDS: Multivitamin w/ Minerals Tab PO SCH (08:27)
--- NOTE | 2018-08-21 20:41 | Progress Notes ---
DATE: 08/18/2018 SUBJECTIVE: Chart reviewed and the patient interviewed. Also discussed the patient's condition with the staff and reviewed records and labs. The patient continued to be in angry and in irritable mood. The patient also is restless and she still needs lots of redirections, but at the same time, no major behavior problems except that she is intrusive, hyperverbal, and talkative. The patient also is asking to leave. The patient supposedly accepted in [facility], but at the same time for some reason patient was not discharged and nurse outreach case manager is blaming on the patient's daughter. Otherwise, the patient is compliant with taking her medications with no side effect of medications. ASSESSMENT: The patient is still in irritable mood, but no major behavioral issues. TREATMENT PLAN: Planning to discharge the patient to [facility] if the daughter will take her there and also if staff arranged for the transportation. At the same time, we will continue current medications and followup. JOB# [id number]
--- NOTE | 2018-08-21 21:04 | Progress Notes ---
DATE: 08/19/2018 SUBJECTIVE: Chart reviewed and the patient interviewed. Also, discussed the patient's condition with the staff and reviewed the records and labs. The patient is still in angry and in irritable mood. The patient also is still rambling. Her thought processes are still circumstantial, but no flight of ideas. The patient denied any hallucinations, but she seems to be paranoid. ASSESSMENT: The patient is still agitated and is still in irritable mood. TREATMENT PLAN: We will monitor the patient's behavior and condition closely. Also, continue to work on her discharge and the placement issue and the plan to discharge the patient today if everything organized regarding her discharge. JOB# [id number]
--- NOTE | 2018-08-21 22:04 | Progress Notes ---
DATE: 08/21/2018 SUBJECTIVE: Chart reviewed and the patient interviewed. Also, discussed the patient's condition with the staff and reviewed records and labs. The patient is still agitated at times and she is still hyperverbal and hyper talkative and intrusive thoughts at times, but less than before. The patient also is still asking about her discharge and there is no order for her discharge yet and caseworker protective services did not discharge the patient yet for unknown reason at the time. She also is still restless and she still at times needs directions. Otherwise, the patient is compliant with taking her medications with no side effects of medications. ASSESSMENT: The patient is still waiting for discharge. TREATMENT PLAN: We will continue monitoring her behavior and continue to adjust psychotropic medications and working on behavioral modification. JOB# [id number]
--- NOTE | 2018-08-21 22:05 | Progress Notes ---
DATE: 08/20/2018 DATE: 08/20/2018 SUBJECTIVE: Chart reviewed and the patient interviewed. Also discussed the patient's condition with the staff and reviewed and left. The patient is still asking for her discharge and informed the patient the discharge further was there, but the patient's daughter and staff has not been able to help to get her out of the hospital. She gets more frustrated and seems more agitated with her increase hospital stay. Otherwise, the patient is compliant with taking her medications with no side effects. ASSESSMENT: The patient is still irritable, but decreased behavioral problems. TREATMENT PLAN: Continue to monitor her behavior and working on discharge plans and placement issue. Also continue adjusting psychotropic medications. JOB# [id number]
[2018-08-22] MEDS: INSULIN ASPART SLIDING SCALE 100 UNITS/ML UNIT SUBQ SCH ×4 (06:48→20:38)
[2018-08-22] MEDS: Multivitamin w/ Minerals Tab PO SCH (13:51)
--- NOTE | 2018-08-22 21:31 | General Progress Note ---
Subjective - Review of Systems Service Date: 08/22/18 Subjective: Patient seen and examined c/o cough no sob or fever or chills or chest pain reported she is non smoker no underlying asthma or any chronic lung issue Objective - Results Result Diagrams: 07/26/18 17:07 07/26/18 17:07 Recent Labs: Laboratory Last Values WBC 6.7 Th/cmm (4.8-10.8) 07/26/18 17:07 RBC 4.12 Mil/cmm (3.80-5.20) 07/26/18 17:07 Hgb 12.2 gm/dL (12-16) 07/26/18 17:07 Hct 37.3 % (41.0-60) L 07/26/18 17:07 MCV 90.4 fl (81-100) 07/26/18 17:07 MCH 29.7 pg (27.0-31.0) 07/26/18 17:07 MCHC Differential 32.8 pg (28.0-36.0) 07/26/18 17:07 RDW 13.4 % (11.5-20.0) 07/26/18 17:07 Plt Count 268 Th/cmm (150-400) 07/26/18 17:07 MPV 7.8 fl 07/26/18 17:07 Neutrophils % 65.3 % (40.0-80.0) 07/26/18 17:07 Lymphocytes % 23.9 % (20.0-50.0) 07/26/18 17:07 Monocytes % 6.5 % (2.0-10.0) 07/26/18 17:07 Eosinophils % 3.9 % (0.0-5.0) 07/26/18 17:07 Basophils % 0.4 % (0.0-2.0) 07/26/18 17:07 Sodium 140 mEq/L (136-145) 07/26/18 17:07 Potassium 4.3 mEq/L (3.5-5.1) 07/26/18 17:07 Chloride 108 mEq/L (98-107) H 07/26/18 17:07 Carbon Dioxide 24.2 mEq/L (21.0-31.0) 07/26/18 17:07 Anion Gap 12.1 (7.0-16.0) 07/26/18 17:07 BUN 24 mg/dL (7-25) 07/26/18 17:07 Creatinine 1.0 mg/dL (0.6-1.2) 07/26/18 17:07 Est GFR ( Amer) TNP 07/26/18 17:07 Est GFR (Non-Af Amer) TNP 07/26/18 17:07 BUN/Creatinine Ratio 24.0 07/26/18 17:07 Glucose 101 mg/dL (70-105) 07/26/18 17:07 POC Glucose 116 MG/DL (70 - 105) H 08/22/18 20:36 Hemoglobin A1c % 6.7 % (4.0-6.0) H 07/26/18 17:07 Calcium 10.1 mg/dL (8.6-10.3) 07/26/18 17:07 Total Bilirubin 0.4 mg/dL (0.3-1.0) 07/26/18 17:07 AST 19 U/L (13-39) 07/26/18 17:07 ALT 17 U/L (7-52) 07/26/18 17:07 Alkaline Phosphatase 70 U/L (34-104) 07/26/18 17:07 Troponin I 0.02 ng/mL (0.01-0.05) 07/26/18 17:07 Total Protein 6.7 gm/dL (6.0-8.3) 07/26/18 17:07 Albumin 4.2 gm/dL (3.7-5.3) 07/26/18 17:07 Globulin 2.5 gm/dL 07/26/18 17:07 Albumin/Globulin Ratio 1.7 (1.0-1.8) 07/26/18 17:07 Triglycerides 90 mg/dL (<150) 07/26/18 17:07 Cholesterol 201 mg/dL (<200) H 07/26/18 17:07 LDL Cholesterol Direct 104 mg/dL (75-193) 07/26/18 17:07 HDL Cholesterol 80 mg/dL (23-92) 07/26/18 17:07 TSH 1.10 uIU/ml (0.34-5.60) 07/26/18 17:07 Urine Source CLEAN C 07/26/18 17:25 Urine Color YELLOW 07/26/18 17:25 Urine Clarity CLEAR (CLEAR) 07/26/18 17:25 Urine pH 5.5 (4.6 - 8.0) 07/26/18 17:25 Ur Specific [place] 1.015 (1.005-1.030) 07/26/18 17:25 Urine Protein NEGATIVE mg/dL (NEGATIVE) 07/26/18 17:25 Urine Glucose (UA) NEGATIVE mg/dL (NEGATIVE) 07/26/18 17:25 Urine Ketones NEGATIVE mg/dL (NEGATIVE) 07/26/18 17:25 Urine Blood NEGATIVE (NEGATIVE) 07/26/18 17:25 Urine Nitrate NEGATIVE (NEGATIVE) 07/26/18 17:25 Urine Bilirubin NEGATIVE (NEGATIVE) 07/26/18 17:25 Urine Urobilinogen 0.2 E.U./dL (0.2 - 1.0) 07/26/18 17:25 Ur Leukocyte Esterase MODERATE (NEGATIVE) H 07/26/18 17:25 Urine RBC 0-2 /hpf (0-5) 07/26/18 17:25 Urine WBC 6-10 /hpf (0-5) H 07/26/18 17:25 Ur Epithelial Cells FEW /lpf (FEW) 07/26/18 17:25 Urine Bacteria 1+ /hpf (NONE SEEN) H 07/26/18 17:25 Salicylates < 25.0 mg/L (30.0-100.0) L 07/26/18 17:07 Urine Opiates Screen NEGATIVE (NEGATIVE) 07/26/18 17:25 Urine Methadone Screen NEGATIVE (NEGATIVE) 07/26/18 17:25 Acetaminophen < 10.0 ug/mL (10.0-30.0) L 07/26/18 17:07 Ur Barbiturates Screen NEGATIVE (NEGATIVE) 07/26/18 17:25 Ur Tricyclics Screen POSITIVE (NEGATIVE) H 07/26/18 17:25 Ur Phencyclidine Scrn NEGATIVE (NEGATIVE) 07/26/18 17:25 Amphetamines Screen NEGATIVE (NEGATIVE) 07/26/18 17:25 U Methamphetamines Scrn NEGATIVE (NEGATIVE) 07/26/18 17:25 U Benzodiazepines Scrn NEGATIVE (NEGATIVE) 07/26/18 17:25 U Cocaine Metab Screen NEGATIVE (NEGATIVE) 07/26/18 17:25 U Cannabinoids Screen NEGATIVE (NEGATIVE) 07/26/18 17:25 Ethyl Alcohol < 10 mg/dL (0-10) 07/26/18 17:07 RPR NONREACTIVE (NONREACTIVE) 07/26/18 17:07 - Physical Exam Vitals and I&O: Vital Signs Temp 98.6 F 08/22/18 20:39 Pulse 69 08/22/18 20:39 Resp 20 08/22/18 20:39 BP 132/66 08/22/18 20:39 Pulse Ox 97 08/22/18 20:39 Intake & Output 08/22/18 08/22/18 08/23/18 06:59 18:59 06:59 Intake Total 120 900 240 Balance 120 900 240 Intake: Oral 120 900 240 Other: # Voids 1 4 1 # Bowel Movements 0 1 Active Medications: Current Medications Acetaminophen (Tylenol) 650 mg PO Q4H PRN PRN Reason: Pain (Mild) Stop: 09/25/18 07:54 Al Hydrox/Mg Hydrox/Simethicone (Maalox) 30 ml PO Q4HR PRN PRN Reason: GI DISTRESS Stop: 09/24/18 20:26 Docusate Sodium (Colace) 100 mg PO DAILY [facility] Stop: 09/25/18 08:59 Last Admin: 08/22/18 13:51 Dose: Not Given Insulin Aspart (Novolog Insulin Sliding Scale) 0 units SUBQ ACHS [facility]; Protocol Stop: 09/25/18 11:29 Last Admin: 08/22/18 20:38 Dose: Not Given Lisinopril (Zestril) 10 mg PO DAILY OBIE Stop: 09/25/18 08:59 Last Admin: 08/22/18 13:51 Dose: Not Given Lorazepam (Ativan) 0.5 mg PO Q4HR PRN; Protocol PRN Reason: Anxiety Stop: 08/25/18 20:26 Last Admin: 08/10/18 09:17 Dose: 0.5 mg Magnesium Hydroxide (Milk Of Magnesia) 30 ml PO HS PRN PRN Reason: Constipation Quetiapine Fumarate 100 mg/ (Quetiapine Fumarate 25 mg) 125 mg PO HS OBIE Stop: 10/07/18 20:59 Last Admin: 08/21/18 20:47 Dose: 125 mg Zolpidem Tartrate (Ambien) 5 mg PO HS PRN PRN Reason: Insomnia Stop: 09/24/18 20:26 Last Admin: 08/15/18 21:15 Dose: 5 mg Cardiovascular: Regular rate Lungs: Clear to auscultation - Procedures Procedures: Procedures Procedure Code Date GROUP PSYCHOTHERAPY 58464 05/30/03 OTHER GROUP THERAPY 94.44 03/28/07 Assessment/Plan - Assessment Assessment: cough DM II HTN Mental health disorder - Plan Plan: I offered patient cough medication but she refused will monitor Continue current medications and treatment plan Psych eval and managment per Dr Castellanos Nutritional Asmnt/Malnutr-PDOC - Dietary Evaluation Malnutrition Findings (Please click <Entered> for more info): Nutritional Asmnt/Malnutrition Start: 08/01/18 10: 26 Text: Status: Complete Freq: Protocol: Document 08/01/18 10:26 MMMARICARMEN (Rec: 08/01/18 10:46 MMMARICARMEN NICOLAS- [id number]) Nutritional Asmnt/Malnutrition Patient General Information Nutritional Screening Low Risk Diagnosis Psychosis Pertinent Medical Hx/Surgical Hx HTN, diabetes, mental health disorder Subjective Information patient was admitted from [facility]. Tolerating current diet order without difficulty. Current Diet Order/ Nutrition Support Mechanical soft chopped diet Patient / S.O Not Indicated Pertinent Medications maalox, colace, novolog, MOM Pertinent Labs WNL Nutritional Hx/Data Height 1.6 m Height (Calculated Centimeters) 160.0 Current Weight (lbs) 67.132 kg Weight (Calculated Kilograms) 67.1 Weight (Calculated Grams) 17488.7 [place] Body Weight 115 % [place] Body Weight 128 Body Mass Index (BMI) 26.2 Recent Weight Change No Weight Status Overweight GI Symptoms GI Symptoms None Last BM 07/31 x 1 Difficult in: None Food Allergies No Cultural/Ethnic/Anabaptism Belief none indicated Usual diet at home unknown Skin Integrity/Comment: melissa 20, intact Current %PO Good (75-100%) Estimated Nutritional Goals BEE in Kcals: Using Current wt Calories/Kcals/Kg (using 67.2 kg CBW) 25-30 kcal /kg Kcals Calculated ~8920-8863 kcal/day Protein: Using Current wt Protein g/k gm/kg Protein Calculated ~65 gm/day Fluid: ml ~1498-4418 ml/day (1 ml/kcal) Nutritional Problem 1. Problem Problem No nutrition diagnosis at this time Intervention/Recommendation Comments 1. Continue mechanical soft chopped diet as tolerated by patient. 2. Follow up as LR 08/08 Expected Outcomes/Goals Expected Outcomes/Goals Oral intake >75% of meals, weight stable, nutrition related labs remain WNL
--- NOTE | 2018-08-22 22:58 | Progress Notes ---
DATE: 08/22/2018 Case was discussed with staff of the patient, reviewed records. The patient is a well-known case to me. I have seen him covering for Dr. Castellanos and I am seeing her again today. Apparently, she has a placement issue. She is reported to still be hyperverbal, hyper-talkative, intrusive, but better than before. Continues to be preoccupied with her discharge plan. The patient is compliant with the medication with no side effects, no sedation, no nausea, no extrapyramidal symptoms. We will continue to work with the patient in group therapy, milieu therapy, and adjust medications as needed. JOB# [id number]
[2018-08-23] MEDS: INSULIN ASPART SLIDING SCALE 100 UNITS/ML UNIT SUBQ SCH ×3 (06:30→20:18)
[2018-08-23] MEDS: Multivitamin w/ Minerals Tab PO SCH (11:28)
--- NOTE | 2018-08-23 17:25 | Progress Notes ---
DATE: 08/23/2018 Case was discussed with staff of the patient, reviewed records. The patient continues to be somewhat confused. Working on discharge plan. Apparently, she was supposed to have been discharged, but however, it was not done because of placement issue. She has been compliant with the medication with no side effects. She is in good mood, somewhat more on the manic side. No side effects with the medication, no sedation, no nausea, no extrapyramidal symptoms. We will continue the patient with group therapy, milieu therapy, and adjust medications as needed. JOB# [id number]
[2018-08-24] MEDS: INSULIN ASPART SLIDING SCALE 100 UNITS/ML UNIT SUBQ SCH ×4 (06:30→21:25)
[2018-08-24] MEDS: Multivitamin w/ Minerals Tab PO SCH (08:06)
--- NOTE | 2018-08-25 00:29 | Progress Notes ---
DATE: 08/24/2018 SUBJECTIVE: Chart reviewed and the patient interviewed. Also, discussed the patient's condition with the staff and reviewed records and labs. The patient is still agitated and is still in irritable mood. The patient also is still rambling. She also still wants to be discharged from the hospital and at the same time pillowcase cleaner did not discharge the patient, although supposedly they informed me that she was accepted by and to go to [facility]. At the same time, the patient continued to comply with taking her medications. Continue same medications and continue to follow up. JOB# [id number]
[2018-08-25] MEDS: INSULIN ASPART SLIDING SCALE 100 UNITS/ML UNIT SUBQ SCH ×3 (06:46→17:00)
--- NOTE | 2018-08-25 07:57 | Progress Notes ---
DATE: SUBJECTIVE: Chart reviewed and the patient interviewed. Also discussed the patient's condition with the staff and reviewed records and labs. The patient is still agitated and restless and in irritable mood, but seems to be less than before. The patient also is interacting slightly more. The patient also is denying any thoughts of suicide or homicide. She also still between her and her family resisting discharge and placement. Otherwise, the patient is taking her medication at this time with no side effects. ASSESSMENT: The patient is less agitated and less irritable. TREATMENT PLAN: We will continue working on discharge plans and monitor behavior and continue to follow up. JOB# [id number]
[2018-08-25] MEDS: Multivitamin w/ Minerals Tab PO SCH (08:13)
== END 2018-08-25 20:00 | DRG 885 ==
LOC: ER 16:46 → GERO2 18:27 → GERO 07-27 17:03
PROVIDERS: ADMIT Psychiatry & Neurology Psychiatry; ATTEND Psychiatry & Neurology Psychiatry
DX: F20.9 Schizophrenia, unspecified (principal); E11.9 Type 2 diabetes mellitus without complications; I10 Essential (primary) hypertension; E78.5 Hyperlipidemia, unspecified; F03.90 Unspecified dementia, unspecified severity, without behavioral disturbance, psychotic disturbance, mood disturbance, and anxiety; F29 Unspecified psychosis not due to a substance or known physiological condition; R05 Cough; Z86.73 Personal history of transient ischemic attack (TIA), and cerebral infarction without residual deficits; Z83.3 Family history of diabetes mellitus; Z22.322 Carrier or suspected carrier of Methicillin resistant Staphylococcus aureus; Z82.49 Family history of ischemic heart disease and other diseases of the circulatory system
CPT/HCPCS: 36415-UA; 80053-TC; 80061-TC; 80307; 80320-TC; 80329-TC; 81001-TC; 82948-90; 83036-90; 84443-TC; 84484-TC; 85025-TC; 86592-TC; 87086-90; 90899; 93005; G0410; J1815; Z7610